=== PATIENT | male | born 1945 ===

== ENCOUNTER 2022-10-16 21:38 | Inpatient (IN) | payer OTHER ==
[~2022-10-16] VITALS: Ht 170.2 cm; Wt 91.8 kg
[2022-10-16 21:44] VITALS: PULSE 167; RESP 42; O2SAT 95
[2022-10-16] MEDS ORDERED: dilTIAZem 25 MG/5 ML VIAL IV ONE ×2 (21:47→22:37)
[2022-10-16 21:54] VITALS: PULSE 171; O2SAT 94
[2022-10-16] MEDS ORDERED: SODIUM CHLORIDE 0.9% 1,000 ML IV ONE (22:00)
[2022-10-16 22:28] LABS: Base Excess -3.5 mmol/L (-2.0-2.0)
[2022-10-16 22:34] LABS: Basophils # (auto) 0 10 ^3/uL (0-0.2); Basophils % (auto) 0.1 % (0.0-2.0); Eosinophils # (auto) 0 10 ^3/uL (0-0.8)
[2022-10-16 22:35] LABS: Hematocrit 35.9 % (41.0-53.0); Hemoglobin 11.5 g/dL (13.5-17.5); Lymphocytes # (auto) 0.6 10 ^3/uL (0.4-5.4); Lymphocytes % (auto) 5.5 % (10.0-50.0); Mean Corpuscular Hemoglobin 32.5 pg (28.0-32.0); Mean Corpuscular Hgb Conc. 32.1 g/dL (32.0-36.0); Mean Corpuscular Volume 101.2 fL (80.0-100.0); Monocytes % (auto) 8.8 % (0.0-12.0); Neutrophils # (auto) 9.8 10 ^3/uL (1.6-8.6); Neutrophils % (auto) 85.6 % (37.0-80.0); Red Blood Cells 3.55 10^6/uL (4.5-5.90); Red Cell Distribution Width 16.6 % (11.8-14.3); White Blood Cell 11.4 10^3/uL (4.4-10.8)
[2022-10-16 22:46] LABS: Alanine Aminotransferase 33 U/L (7-40); Albumin 2.7 g/dL (3.2-4.8); Alkaline Phosphatase 112 U/L (46-116); Anion Gap 11.7 (5-15); Aspartate Aminotransferase 78 U/L (13-40); Bilirubin, Total 0.6 mg/dL (0.2-1.0); Blood Urea Nitrogen 36 mg/dL (9-23); Calcium 7.7 mg/dL (8.5-10.1); Carbon Dioxide 17.3 mmol/L (20-30); Chloride 113 mmol/L (98-107); Glucose 291 mg/dL (74-106); Potassium 3.1 mmol/L (3.5-5.1); Sodium 142 mmol/L (136-145); Total Protein 6.2 g/dL (5.7-8.2)
[2022-10-16 22:55] LABS: INR 1.28 (0.9-1.15); Partial Thromboplastin Time 31.1 SEC (24.5-34.5); Prothrombin Time 13.2 sec (9.3-11.8)
[2022-10-16] MEDS ORDERED: METOPROLOL TARTRATE 1MG/1ML-5ML VIAL IV ONE ×3 (22:59→23:13)
[2022-10-16] MEDS ORDERED: ENOXAPARIN SOD 80 MG/0.8ML SYRINGE SC ONE (23:15)
[2022-10-16] MEDS: LACTATED RINGER'S 1,000 ML IV ONE (23:45)
[2022-10-16 23:58] VITALS: BP 113/60; PULSE 160; RESP 29; TEMP 97.4; O2SAT 94
[2022-10-17] VITALS (27 sets, daily range): BP systolic 84–116; BP diastolic 46–71; PULSE 71–115; RESP 21–40; TEMP 97–97.8; O2SAT 87–98
[2022-10-17] MEDS ORDERED: AZITHROMYCIN 500MG/ 250ML 250 ML IV ONE
[2022-10-17] MEDS ORDERED: cefTRIAXone 1GM/50ML D5W 50 ML IV ONE
[2022-10-17] MEDS ORDERED: dilTIAZem 25 MG/5 ML VIAL IV ONE ×2
[2022-10-17] MEDS ORDERED: ALBUTEROL SULF 2.5 MG/0.5ML(0.5%) NEB SOLN NEB ONE
[2022-10-17] MEDS ORDERED: DexAMETHasone SOD PHOS 10MG/1ML VIAL INJ IV ONE
[2022-10-17 00:27] LABS: Urine Bacteria NONE SEEN /hpf (None Seen); Urine Blood TRACE /uL (Negative); Urine Clarity CLOUDY (Clear); Urine Color Yellow (Yellow); Urine Protein, UAD 2+ (Negative); Urine Specific Gravity 1.016 (1.001-1.035); Urine Urobilinogen Normal (Negative); Urine WBC 89 /hpf (0 - 3); Urine WBC Clumps PRESENT /hpf (None Seen)
[2022-10-17] MEDS ORDERED: METOPROLOL TARTRATE 1MG/1ML-5ML VIAL IV ONE ×4 (00:37→00:39)
[2022-10-17] MEDS: METOPROLOL TARTRATE 1MG/1ML-5ML VIAL IV ONE ×2 (00:42→03:19)
[2022-10-17 00:43] LABS: Rapid Influenza A Negative (Negative); Rapid Influenza B Negative (Negative)
[2022-10-17 00:44] LABS: COVID19 ANTIGEN SOFIA FIA NEGATIVE (NEGATIVE)
[2022-10-17] MEDS: LACTATED RINGER'S 1,000 ML IV ONE (01:33)
[2022-10-17] MEDS ORDERED: HYDROcodone-ACET 5/325MG TAB PO PRN (06:00)
[2022-10-17] MEDS ORDERED: DOCUSATE SOD 100 MG CAP PO PRN (06:00)
[2022-10-17] MEDS ORDERED: DEXTROSE (50%) 50ML SYRG IV PRN (06:00)
[2022-10-17] MEDS ORDERED: ACETAMINOPHEN 325 MG TAB PO PRN (06:00)
[2022-10-17] MEDS ORDERED: ALBUMIN 25% 100 ML IV ONE (06:00)
[2022-10-17] MEDS ORDERED: ONDANSETRON HCL 4 MG/2 ML VIAL IV PRN (06:00)
[2022-10-17] MEDS: SODIUM CHLOR 0.9% PF (SALINE LOCK) 10ML VIAL/SYR IV SCH ×3 (06:30→22:00)
[2022-10-17 06:47] LABS: Basophils # (auto) 0 10 ^3/uL (0-0.2); Basophils % (auto) 0.1 % (0.0-2.0); Eosinophils # (auto) 0 10 ^3/uL (0-0.8); Hematocrit 34.7 % (41.0-53.0); Hemoglobin 11.3 g/dL (13.5-17.5); Lymphocytes # (auto) 1.1 10 ^3/uL (0.4-5.4); Lymphocytes % (auto) 10.4 % (10.0-50.0); Mean Corpuscular Hemoglobin 32.7 pg (28.0-32.0); Mean Corpuscular Hgb Conc. 32.5 g/dL (32.0-36.0); Mean Corpuscular Volume 100.6 fL (80.0-100.0); Monocytes # (auto) 0.4 10 ^3/uL (0-1.3); Monocytes % (auto) 3.4 % (0.0-12.0); Neutrophils # (auto) 9.2 10 ^3/uL (1.6-8.6); Neutrophils % (auto) 86.1 % (37.0-80.0); Nucleated Red Blood Cells % 0.2 %; Red Blood Cells 3.45 10^6/uL (4.5-5.90); Red Cell Distribution Width 16.3 % (11.8-14.3); White Blood Cell 10.7 10^3/uL (4.4-10.8)
[2022-10-17] MEDS ORDERED: NITROGLYCERIN 0.4 MG SL TAB SL PRN (07:00)
[2022-10-17] MEDS ORDERED: MORPHINE SULFATE INJ 2 MG/ml SYRG IV PRN (07:00)
[2022-10-17] MEDS: POTASSIUM CHL 20MEQ/100ML 100 ML IV SCH ×2 (07:22→10:58)
[2022-10-17] MEDS: ACCU-CHEK COMFORT CURVE STRIP VI SCH ×4 (07:25→22:00)
[2022-10-17] MEDS: InsuLIN REG 1unit/0.01ml Soln (100units/ml) SC SCH ×4 (07:30→22:00)
[2022-10-17] MEDS ORDERED: CALCIUM GLUC 1,000mg/50ml-NS 50 ML IV ONE (08:30)
[2022-10-17 08:58] LABS: Alanine Aminotransferase 33 U/L (7-40); Albumin 2.8 g/dL (3.2-4.8); Alkaline Phosphatase 110 U/L (46-116); Anion Gap 15.1 (5-15); Aspartate Aminotransferase 82 U/L (13-40); BUN/Creatinine Ratio 45.7 (10.0-20.0); Blood Urea Nitrogen 37 mg/dL (9-23); Calcium 7.6 mg/dL (8.5-10.1); Carbon Dioxide 13.9 mmol/L (20-30); Chloride 116 mmol/L (98-107); Glucose 290 mg/dL (74-106); Potassium 3.3 mmol/L (3.5-5.1); Sodium 145 mmol/L (136-145)
[2022-10-17 08:59] LABS: Bilirubin, Total 0.6 mg/dL (0.2-1.0); Total Protein 6.3 g/dL (5.7-8.2)
[2022-10-17] MEDS ORDERED: HEPARIN SODIUM (PORCINE) 5000 UNITS/ML 1ML VIAL SC SCH (10:00)
[2022-10-17] MEDS: CARVEDILOL 3.125 MG TAB PO SCH ×2 (10:38→22:00)
[2022-10-17] MEDS: ASPirin 81 mg TAB PO SCH (10:42)
[2022-10-17] MEDS: DexAMETHasone SOD PHOS 10MG/1ML VIAL INJ IV SCH (10:50)
[2022-10-17] MEDS: FUROSEMIDE 20 MG/2 ML VIAL IV SCH (10:51)
[2022-10-17] MEDS ORDERED: HEPARIN DRIP/D5W 100UNITS/ML 250 ML IV SCH ×2 (12:00→20:15)
[2022-10-17] MEDS ORDERED: DIGOXIN (250MCG/ML) 2 ML AMPULE IV ONE (12:00)
[2022-10-17] MEDS ORDERED: HEPARIN SODIUM (PORCINE) 5000 UNITS/ML 1ML VIAL IV ONE (12:00)
[2022-10-17 12:26] LABS: Magnesium 1.9 mg/dL (1.6-2.6)
[2022-10-17 12:39] LABS: INR 1.21 (0.9-1.15); Partial Thromboplastin Time 43.1 SEC (24.5-34.5); Prothrombin Time 12.5 sec (9.3-11.8)
[2022-10-17 12:40] LABS: Basophils # (auto) 0 10 ^3/uL (0-0.2); Basophils % (auto) 0.1 % (0.0-2.0); Eosinophils # (auto) 0 10 ^3/uL (0-0.8); Hematocrit 34.6 % (41.0-53.0); Hemoglobin 11.1 g/dL (13.5-17.5); Lymphocytes # (auto) 0.9 10 ^3/uL (0.4-5.4); Mean Corpuscular Hemoglobin 32.3 pg (28.0-32.0); Mean Corpuscular Hgb Conc. 32.1 g/dL (32.0-36.0); Mean Corpuscular Volume 100.5 fL (80.0-100.0); Monocytes # (auto) 0.4 10 ^3/uL (0-1.3); Monocytes % (auto) 4.3 % (0.0-12.0); Neutrophils # (auto) 8.5 10 ^3/uL (1.6-8.6); Neutrophils % (auto) 86.6 % (37.0-80.0); Red Blood Cells 3.44 10^6/uL (4.5-5.90); Red Cell Distribution Width 16.8 % (11.8-14.3); White Blood Cell 9.8 10^3/uL (4.4-10.8)
[2022-10-17] MEDS ORDERED: PANT40TA2 PO (15:16)
[2022-10-17] MEDS ORDERED: PANT1INJ3 IV (15:16)
[2022-10-17] MEDS ORDERED: SUCR1TAB22 PO (15:16)
[2022-10-17] MEDS ORDERED: FINA5TAB4 PO (15:18)
[2022-10-17] MEDS ORDERED: ONDA-155 PO (15:18)
[2022-10-17] MEDS ORDERED: TERA5CAP42 PO (15:18)
[2022-10-17] MEDS ORDERED: FAMO-12 PO (15:18)
[2022-10-17 15:33] LABS: Lactic Acid w/Reflex 2.9 mmol/L (0.4-2.0)
[2022-10-17 19:27] LABS: INR 1.25 (0.9-1.15); Partial Thromboplastin Time 44.9 SEC (24.5-34.5); Prothrombin Time 12.9 sec (9.3-11.8)
[2022-10-17] MEDS: ATORVASTATIN 20 MG TAB PO SCH (22:00)
[2022-10-18] VITALS (36 sets, daily range): BP systolic 90–115; BP diastolic 43–69; PULSE 54–96; RESP 12–46; TEMP 97.2–97.8; O2SAT 87–99
[2022-10-18] MEDS: cefTRIAXone 1GM/50ML D5W 50 ML IV SCH
[2022-10-18] MEDS: AZITHROMYCIN 500MG/ 250ML 250 ML IV SCH (02:50)
[2022-10-18 04:49] LABS: Basophils # (auto) 0 10 ^3/uL (0-0.2); Basophils % (auto) 0.1 % (0.0-2.0); Eosinophils # (auto) 0 10 ^3/uL (0-0.8); Hemoglobin 11.1 g/dL (13.5-17.5); Lymphocytes # (auto) 0.7 10 ^3/uL (0.4-5.4); Lymphocytes % (auto) 6.4 % (10.0-50.0); Monocytes # (auto) 0.6 10 ^3/uL (0-1.3); Neutrophils # (auto) 9.1 10 ^3/uL (1.6-8.6); Nucleated Red Blood Cells % 0.1 %; Red Blood Cells 3.39 10^6/uL (4.5-5.90); White Blood Cell 10.4 10^3/uL (4.4-10.8)
[2022-10-18 04:50] LABS: Mean Corpuscular Hemoglobin 32.6 pg (28.0-32.0); Mean Corpuscular Hgb Conc. 31.6 g/dL (32.0-36.0); Mean Corpuscular Volume 103.2 fL (80.0-100.0); Monocytes % (auto) 5.5 % (0.0-12.0); Red Cell Distribution Width 17.1 % (11.8-14.3)
[2022-10-18 05:08] LABS: Alanine Aminotransferase 45 U/L (7-40); Alkaline Phosphatase 149 U/L (46-116)
[2022-10-18 05:09] LABS: Albumin 2.8 g/dL (3.2-4.8); Anion Gap 8.3 (5-15); Aspartate Aminotransferase 99 U/L (13-40); BUN/Creatinine Ratio 48.5 (10.0-20.0); Bilirubin, Total 0.5 mg/dL (0.2-1.0); Blood Urea Nitrogen 33 mg/dL (9-23); Calcium 7.8 mg/dL (8.7-10.4); Carbon Dioxide 22.7 mmol/L (20-30); Chloride 116 mmol/L (98-107); Potassium 3.4 mmol/L (3.5-5.1); Sodium 147 mmol/L (136-145)
[2022-10-18 05:15] LABS: Glucose 185 mg/dL (74-106)
[2022-10-18] MEDS: SODIUM CHLOR 0.9% PF (SALINE LOCK) 10ML VIAL/SYR IV SCH ×3 (06:00→22:00)
[2022-10-18] MEDS: ACCU-CHEK COMFORT CURVE STRIP VI SCH ×4 (07:00→22:00)
[2022-10-18] MEDS: InsuLIN REG 1unit/0.01ml Soln (100units/ml) SC SCH ×4 (07:00→23:13)
[2022-10-18] MEDS ORDERED: MAGNESIUM SULFATE 1GM/100ML 100 ML IV ONE (07:45)
[2022-10-18] MEDS: POTASSIUM CHL 20MEQ/100ML 100 ML IV SCH ×2 (09:51→11:47)
[2022-10-18] MEDS: POTASSIUM CHL 20 Meq TABLET PO SCH (10:00)
[2022-10-18] MEDS: CARVEDILOL 3.125 MG TAB PO SCH ×2 (10:00→22:00)
[2022-10-18] MEDS: ASPirin 81 mg TAB PO SCH (10:00)
[2022-10-18] MEDS: DexAMETHasone SOD PHOS 10MG/1ML VIAL INJ IV SCH (10:13)
[2022-10-18] MEDS: FUROSEMIDE 20 MG/2 ML VIAL IV SCH (10:13)
[2022-10-18] MEDS: MAGIC MOUTHWASH 55 ML SUSP MT SCH ×3 (12:00→21:44)
[2022-10-18 13:49] LABS: INR 1.16 (0.9-1.15); Partial Thromboplastin Time 47.6 SEC (24.5-34.5); Prothrombin Time 12.1 sec (9.3-11.8)
[2022-10-18] MEDS: HEPARIN DRIP/D5W 100UNITS/ML 250 ML IV SCH (14:53)
[2022-10-18] MEDS: PROMETHAZINE HCL 6.25 MG/5 ML ORAL SYRUP PO PRN (17:42)
[2022-10-18] MEDS ORDERED: THROAT LOZENGES(CEPASTAT) MT PRN (21:00)
[2022-10-18 21:36] LABS: INR 1.18 (0.9-1.15); Partial Thromboplastin Time 65.1 SEC (24.5-34.5); Prothrombin Time 12.3 sec (9.3-11.8)
[2022-10-18] MEDS: IPRATROPIUM BROM 0.5 MG/2.5ML INH SOL NEB SCH (22:19)
[2022-10-18] MEDS: ALBUTEROL SULF 2.5 MG/0.5ML(0.5%) NEB SOLN NEB SCH (22:20)
[2022-10-18] MEDS: ATORVASTATIN 20 MG TAB PO SCH (22:48)
[2022-10-19] VITALS (33 sets, daily range): BP systolic 95–135; BP diastolic 48–76; PULSE 59–118; RESP 13–38; TEMP 97.3–98.6; O2SAT 88–99
[2022-10-19] MEDS: cefTRIAXone 1GM/50ML D5W 50 ML IV SCH ×2 (00:12→23:41)
[2022-10-19] MEDS: PROMETHAZINE HCL 6.25 MG/5 ML ORAL SYRUP PO PRN (00:14)
[2022-10-19] MEDS: AZITHROMYCIN 500MG/ 250ML 250 ML IV SCH (01:17)
[2022-10-19 04:50] LABS: INR 1.19 (0.9-1.15); Prothrombin Time 12.4 sec (9.3-11.8)
[2022-10-19 04:58] LABS: Partial Thromboplastin Time 73.2 SEC (24.5-34.5)
[2022-10-19] MEDS: ALBUTEROL SULF 2.5 MG/0.5ML(0.5%) NEB SOLN NEB SCH ×3 (05:58→18:10)
[2022-10-19] MEDS: IPRATROPIUM BROM 0.5 MG/2.5ML INH SOL NEB SCH ×3 (05:58→18:09)
[2022-10-19 06:00] LABS: Chloride 116 mmol/L (98-107); Potassium 3.3 mmol/L (3.5-5.1); Sodium 146 mmol/L (136-145)
[2022-10-19] MEDS: SODIUM CHLOR 0.9% PF (SALINE LOCK) 10ML VIAL/SYR IV SCH ×3 (06:00→22:36)
[2022-10-19] MEDS: MAGIC MOUTHWASH 55 ML SUSP MT SCH ×4 (06:00→22:36)
[2022-10-19 06:01] LABS: Anion Gap 9.6 (5-15); Carbon Dioxide 20.4 mmol/L (20-30)
[2022-10-19 06:02] LABS: Calcium 7.8 mg/dL (8.7-10.4)
[2022-10-19 06:06] LABS: BUN/Creatinine Ratio 51.6 (10.0-20.0); Blood Urea Nitrogen 32 mg/dL (9-23); Glucose 151 mg/dL (74-106)
[2022-10-19 06:08] LABS: Basophils # (auto) 0 10 ^3/uL (0-0.2); Basophils % (auto) 0.1 % (0.0-2.0); Eosinophils # (auto) 0 10 ^3/uL (0-0.8); Monocytes # (auto) 0.6 10 ^3/uL (0-1.3); Monocytes % (auto) 5.2 % (0.0-12.0); Red Cell Distribution Width 16.8 % (11.8-14.3)
[2022-10-19 06:10] LABS: Hematocrit 34.3 % (41.0-53.0); Lymphocytes # (auto) 0.7 10 ^3/uL (0.4-5.4); Lymphocytes % (auto) 6.7 % (10.0-50.0); Mean Corpuscular Hemoglobin 32.4 pg (28.0-32.0); Mean Corpuscular Volume 101.3 fL (80.0-100.0); Neutrophils # (auto) 9.5 10 ^3/uL (1.6-8.6); Nucleated Red Blood Cells % 0.1 %; Red Blood Cells 3.38 10^6/uL (4.5-5.90); White Blood Cell 10.9 10^3/uL (4.4-10.8)
[2022-10-19] MEDS: InsuLIN REG 1unit/0.01ml Soln (100units/ml) SC SCH ×4 (07:00→22:41)
[2022-10-19] MEDS: ACCU-CHEK COMFORT CURVE STRIP VI SCH ×4 (07:00→22:37)
[2022-10-19] MEDS: HEPARIN DRIP/D5W 100UNITS/ML 250 ML IV SCH (08:19)
[2022-10-19] MEDS: DexAMETHasone SOD PHOS 10MG/1ML VIAL INJ IV SCH (09:59)
[2022-10-19] MEDS: ASPirin 81 mg TAB PO SCH (09:59)
[2022-10-19] MEDS: FUROSEMIDE 20 MG/2 ML VIAL IV SCH (09:59)
[2022-10-19] MEDS: POTASSIUM CHL 20 Meq TABLET PO SCH (09:59)
[2022-10-19] MEDS: CARVEDILOL 3.125 MG TAB PO SCH ×2 (10:08→22:00)
[2022-10-19 10:19] LABS: INR 1.17 (0.9-1.15); Partial Thromboplastin Time 57.2 SEC (24.5-34.5); Prothrombin Time 12.2 sec (9.3-11.8)
[2022-10-19] MEDS: ATORVASTATIN 20 MG TAB PO SCH (22:36)
[2022-10-20] VITALS (33 sets, daily range): BP systolic 92–129; BP diastolic 43–70; PULSE 30–103; RESP 13–32; TEMP 97.4–97.9; O2SAT 83–97
[2022-10-20] MEDS: IPRATROPIUM BROM 0.5 MG/2.5ML INH SOL NEB SCH ×4 (00:07→18:33)
[2022-10-20] MEDS: ALBUTEROL SULF 2.5 MG/0.5ML(0.5%) NEB SOLN NEB SCH ×4 (00:07→18:33)
[2022-10-20] MEDS: AZITHROMYCIN 500MG/ 250ML 250 ML IV SCH (01:14)
[2022-10-20] MEDS: HEPARIN DRIP/D5W 100UNITS/ML 250 ML IV SCH ×2 (02:28→08:39)
[2022-10-20 05:59] LABS: Basophils # (auto) 0 10 ^3/uL (0-0.2); Eosinophils # (auto) 0 10 ^3/uL (0-0.8); Mean Corpuscular Hemoglobin 33.3 pg (28.0-32.0); Monocytes # (auto) 0.5 10 ^3/uL (0-1.3); Neutrophils % (auto) 89.4 % (37.0-80.0); Red Blood Cells 3.31 10^6/uL (4.5-5.90)
[2022-10-20] MEDS: MAGIC MOUTHWASH 55 ML SUSP MT SCH ×4 (06:00→20:45)
[2022-10-20 06:02] LABS: Hematocrit 33.5 % (41.0-53.0); Lymphocytes # (auto) 0.5 10 ^3/uL (0.4-5.4); Lymphocytes % (auto) 5.6 % (10.0-50.0); Mean Corpuscular Hgb Conc. 32.9 g/dL (32.0-36.0); Mean Corpuscular Volume 101.3 fL (80.0-100.0); Neutrophils # (auto) 8.5 10 ^3/uL (1.6-8.6); Nucleated Red Blood Cells % 0.1 %; Red Cell Distribution Width 16.5 % (11.8-14.3); White Blood Cell 9.5 10^3/uL (4.4-10.8)
[2022-10-20 06:30] LABS: INR 1.26 (0.9-1.15)
[2022-10-20] MEDS: ACCU-CHEK COMFORT CURVE STRIP VI SCH ×3 (06:46→18:22)
[2022-10-20] MEDS: SODIUM CHLOR 0.9% PF (SALINE LOCK) 10ML VIAL/SYR IV SCH ×2 (06:46→14:00)
[2022-10-20] MEDS: InsuLIN REG 1unit/0.01ml Soln (100units/ml) SC SCH ×3 (06:47→18:24)
[2022-10-20] MEDS ORDERED: TPN PER PHARMACY 0 ML IV SCH (08:15)
[2022-10-20 08:30] LABS: Alanine Aminotransferase 87 U/L (7-40); Albumin 2.8 g/dL (3.2-4.8); Alkaline Phosphatase 171 U/L (46-116); Aspartate Aminotransferase 98 U/L (13-40); BUN/Creatinine Ratio 45.6 (10.0-20.0); Blood Urea Nitrogen 26 mg/dL (9-23); Calcium 7.6 mg/dL (8.5-10.1); Chloride 114 mmol/L (98-107); Glucose 140 mg/dL (74-106); Magnesium 2.1 mg/dL (1.6-2.6); Potassium 3.8 mmol/L (3.5-5.1); Sodium 146 mmol/L (136-145); Triglycerides 78 mg/dL (< 150)
[2022-10-20 08:31] LABS: Bilirubin, Total 0.4 mg/dL (0.2-1.0); Phosphorus 4.2 mg/dL (2.4-5.1)
[2022-10-20 10:59] LABS: Base Excess -0.1 mmol/L (-2.0-2.0)
[2022-10-20] MEDS ORDERED: DEXTROSE (50%) 50ML SYRG IV SCH ×2 (11:00→20:00)
[2022-10-20] MEDS: CARVEDILOL 3.125 MG TAB PO SCH ×2 (11:04→21:26)
[2022-10-20] MEDS: DexAMETHasone SOD PHOS 10MG/1ML VIAL INJ IV SCH (11:04)
[2022-10-20] MEDS: FUROSEMIDE 20 MG/2 ML VIAL IV SCH (11:04)
[2022-10-20] MEDS: ASPirin 81 mg TAB PO SCH (11:04)
[2022-10-20] MEDS: POTASSIUM CHL 20 Meq TABLET PO SCH (11:05)
[2022-10-20] MEDS: FLUCONAZOLE 200MG/100ML 100 ML IV SCH ×2 (11:05→12:15)
[2022-10-20 13:13] LABS: COVID19 ANTIGEN SOFIA FIA NEGATIVE (NEGATIVE)
[2022-10-20] MEDS ORDERED: LORazepam 2MG/ML-1ML VIAL IV PRN (14:00)
[2022-10-20 15:23] LABS: INR 1.23 (0.9-1.15); Prothrombin Time 12.7 sec (9.3-11.8)
[2022-10-20 20:50] LABS: INR 1.26 (0.9-1.15); Partial Thromboplastin Time 56.7 SEC (24.5-34.5)
[2022-10-20] MEDS: TPN PER PHARMACY IV NR ×9 (21:17)
[2022-10-20] MEDS: ATORVASTATIN 20 MG TAB PO SCH (21:26)
[2022-10-21] VITALS (41 sets, daily range): BP systolic 85–127; BP diastolic 42–69; PULSE 57–94; RESP 15–68; TEMP 97.2–98; O2SAT 86–97
[2022-10-21] MEDS ORDERED: InsuLIN REG 1unit/0.01ml Soln (100units/ml) SC SCH
[2022-10-21] MEDS ORDERED: ACCU-CHEK COMFORT CURVE STRIP VI SCH
[2022-10-21] MEDS: IPRATROPIUM BROM 0.5 MG/2.5ML INH SOL NEB SCH ×4 (00:12→18:11)
[2022-10-21] MEDS: ALBUTEROL SULF 2.5 MG/0.5ML(0.5%) NEB SOLN NEB SCH ×4 (00:12→18:11)
[2022-10-21] MEDS: cefTRIAXone 1GM/50ML D5W 50 ML IV SCH (00:27)
[2022-10-21] MEDS: SODIUM CHLOR 0.9% PF (SALINE LOCK) 10ML VIAL/SYR IV SCH ×4 (00:27→21:43)
[2022-10-21] MEDS: AZITHROMYCIN 500MG/ 250ML 250 ML IV SCH (00:27)
[2022-10-21] MEDS: ACCU-CHEK COMFORT CURVE STRIP VI SCH ×4 (00:33→18:40)
[2022-10-21] MEDS: InsuLIN REG 1unit/0.01ml Soln (100units/ml) SC SCH ×4 (00:37→18:46)
[2022-10-21] MEDS: HEPARIN DRIP/D5W 100UNITS/ML 250 ML IV SCH (00:45)
[2022-10-21 02:54] LABS: INR 1.26 (0.9-1.15); Partial Thromboplastin Time 60.1 SEC (24.5-34.5)
[2022-10-21 03:38] LABS: Basophils # (auto) 0 10 ^3/uL (0-0.2); Eosinophils # (auto) 0 10 ^3/uL (0-0.8); Hematocrit 30.1 % (41.0-53.0); Lymphocytes # (auto) 0.5 10 ^3/uL (0.4-5.4); Mean Corpuscular Hemoglobin 33.7 pg (28.0-32.0); Mean Corpuscular Hgb Conc. 33.2 g/dL (32.0-36.0); Mean Corpuscular Volume 101.5 fL (80.0-100.0); Monocytes # (auto) 0.2 10 ^3/uL (0-1.3); Neutrophils # (auto) 6.7 10 ^3/uL (1.6-8.6); Red Blood Cells 2.97 10^6/uL (4.5-5.90); Red Cell Distribution Width 16.2 % (11.8-14.3); White Blood Cell 7.4 10^3/uL (4.4-10.8)
[2022-10-21 03:45] LABS: Alanine Aminotransferase 81 U/L (7-40); Albumin 2.6 g/dL (3.2-4.8); Alkaline Phosphatase 168 U/L (46-116); Anion Gap 3.4 (5-15); Aspartate Aminotransferase 98 U/L (13-40); BUN/Creatinine Ratio 34.5 (10.0-20.0); Blood Urea Nitrogen 20 mg/dL (9-23); Calcium 7.5 mg/dL (8.7-10.4); Carbon Dioxide 25.6 mmol/L (20-30); Chloride 110 mmol/L (98-107); Glucose 235 mg/dL (74-106); Potassium 4.2 mmol/L (3.5-5.1); Sodium 139 mmol/L (136-145)
[2022-10-21 03:46] LABS: Bilirubin, Total 0.3 mg/dL (0.2-1.0); Total Protein 5.6 g/dL (5.7-8.2)
[2022-10-21] MEDS: MAGIC MOUTHWASH 55 ML SUSP MT SCH ×4 (05:37→21:43)
[2022-10-21] MEDS: PROMETHAZINE HCL 6.25 MG/5 ML ORAL SYRUP PO PRN (08:02)
[2022-10-21] MEDS: FUROSEMIDE 20 MG/2 ML VIAL IV SCH (10:54)
[2022-10-21] MEDS: POTASSIUM CHL 20 Meq TABLET PO SCH (10:54)
[2022-10-21] MEDS: ASPirin 81 mg TAB PO SCH (10:54)
[2022-10-21] MEDS: DexAMETHasone SOD PHOS 10MG/1ML VIAL INJ IV SCH (10:54)
[2022-10-21] MEDS: CARVEDILOL 3.125 MG TAB PO SCH ×2 (10:55→21:25)
[2022-10-21] MEDS: FLUCONAZOLE 200MG/100ML 100 ML IV SCH ×2 (10:55→12:14)
[2022-10-21] MEDS: TPN PER PHARMACY IV NR ×9 (19:55)
[2022-10-21] MEDS ORDERED: TPN PER PHARMACY IV NR ×10 (20:00)
[2022-10-21] MEDS: ATORVASTATIN 20 MG TAB PO SCH (21:25)
[2022-10-22] VITALS (65 sets, daily range): BP systolic 69–146; BP diastolic 41–82; PULSE 39–106; RESP 14–35; TEMP 96.7–97.8; O2SAT 81–100
[2022-10-22] MEDS: IPRATROPIUM BROM 0.5 MG/2.5ML INH SOL NEB SCH ×4 (00:05→18:23)
[2022-10-22] MEDS: ALBUTEROL SULF 2.5 MG/0.5ML(0.5%) NEB SOLN NEB SCH ×4 (00:05→18:24)
[2022-10-22] MEDS: AZITHROMYCIN 500MG/ 250ML 250 ML IV SCH (00:20)
[2022-10-22] MEDS: cefTRIAXone 1GM/50ML D5W 50 ML IV SCH (00:20)
[2022-10-22] MEDS: HEPARIN DRIP/D5W 100UNITS/ML 250 ML IV SCH ×2 (00:37→16:58)
[2022-10-22] MEDS: ACCU-CHEK COMFORT CURVE STRIP VI SCH ×4 (00:39→19:56)
[2022-10-22] MEDS: InsuLIN REG 1unit/0.01ml Soln (100units/ml) SC SCH ×4 (00:46→19:58)
[2022-10-22] MEDS: SODIUM CHLOR 0.9% PF (SALINE LOCK) 10ML VIAL/SYR IV SCH ×3 (05:46→22:34)
[2022-10-22] MEDS: MAGIC MOUTHWASH 55 ML SUSP MT SCH ×4 (05:46→22:00)
[2022-10-22 06:20] LABS: Alanine Aminotransferase 73 U/L (7-40); Albumin 2.6 g/dL (3.2-4.8); Alkaline Phosphatase 160 U/L (46-116); Anion Gap 5 (5-15); Aspartate Aminotransferase 65 U/L (13-40); BUN/Creatinine Ratio 43.2 (10.0-20.0); Blood Urea Nitrogen 19 mg/dL (9-23); Calcium 7.4 mg/dL (8.5-10.1); Carbon Dioxide 27 mmol/L (20-30); Chloride 103 mmol/L (98-107); Glucose 232 mg/dL (74-106); Magnesium 1.8 mg/dL (1.6-2.6); Phosphorus 2.4 mg/dL (2.4-5.1); Sodium 135 mmol/L (136-145)
[2022-10-22 06:21] LABS: Bilirubin, Total 0.3 mg/dL (0.2-1.0); Total Protein 5.4 g/dL (5.7-8.2)
[2022-10-22] MEDS ORDERED: ETOMIDATE (2MG/ML) 20ML VIAL IV ONE (08:00)
[2022-10-22] MEDS ORDERED: ROCURONIUM 10MG/ML 10ML VIAL IV ONE (08:00)
[2022-10-22 08:04] LABS: INR 1.28 (0.9-1.15); Prothrombin Time 13.2 sec (9.3-11.8)
[2022-10-22 08:06] LABS: Partial Thromboplastin Time > 139.0 SEC (24.5-34.5)
[2022-10-22] MEDS ORDERED: HEPARIN DRIP/D5W 100UNITS/ML 250 ML IV SCH (09:00)
[2022-10-22] MEDS: POTASSIUM CHL 20 Meq TABLET PO SCH (10:00)
[2022-10-22] MEDS: CARVEDILOL 3.125 MG TAB PO SCH ×2 (10:00→22:00)
[2022-10-22] MEDS: ASPirin 81 mg TAB PO SCH (10:00)
[2022-10-22] MEDS ORDERED: SODIUM PHOSPHATES 20 MEQ in SODIUM CHL 0.9% 100 ML IV ONE (10:45)
[2022-10-22] MEDS: fentaNYL Drip 2500mCg/250mlNS 250 ML IV SCH (13:45)
[2022-10-22] MEDS: PROPOFOL 100 ML IV SCH ×2 (14:00→22:49)
[2022-10-22] MEDS: NOREPINEPHRINE 8 MG/250ML KIT 250 ML IV SCH (15:05)
[2022-10-22 15:37] LABS: Base Excess -1.8 mmol/L (-2.0-2.0)
[2022-10-22 15:52] LABS: Basophils # (auto) 0 10 ^3/uL (0-0.2); Basophils % (auto) 0.2 % (0.0-2.0); Eosinophils # (auto) 0 10 ^3/uL (0-0.8); Eosinophils % (auto) 0.2 % (0.0-7.0); Hematocrit 34.3 % (41.0-53.0); Hemoglobin 11.2 g/dL (13.5-17.5); Lymphocytes # (auto) 1.1 10 ^3/uL (0.4-5.4); Lymphocytes % (auto) 7.3 % (10.0-50.0); Mean Corpuscular Hemoglobin 32.7 pg (28.0-32.0); Mean Corpuscular Hgb Conc. 32.7 g/dL (32.0-36.0); Mean Corpuscular Volume 99.9 fL (80.0-100.0); Monocytes # (auto) 0.5 10 ^3/uL (0-1.3); Monocytes % (auto) 3.2 % (0.0-12.0); Neutrophils # (auto) 13.1 10 ^3/uL (1.6-8.6); Neutrophils % (auto) 89.1 % (37.0-80.0); Red Blood Cells 3.43 10^6/uL (4.5-5.90); Red Cell Distribution Width 15.6 % (11.8-14.3); White Blood Cell 14.7 10^3/uL (4.4-10.8)
[2022-10-22] MEDS: FUROSEMIDE 20 MG/2 ML VIAL IV SCH (15:55)
[2022-10-22] MEDS: DexAMETHasone SOD PHOS 10MG/1ML VIAL INJ IV SCH (15:55)
[2022-10-22] MEDS: FLUCONAZOLE 200MG/100ML 100 ML IV SCH ×2 (15:56→17:03)
[2022-10-22 16:12] LABS: INR 1.21 (0.9-1.15); Prothrombin Time 12.5 sec (9.3-11.8)
[2022-10-22 17:09] LABS: Hepatitis A Total Antibody Positive (Negative)
[2022-10-22 17:10] LABS: Hepatitis B Core Total AB Negative (Negative); Hepatitis B Surface Antibody Negative (Negative); Hepatitis B Surface Antigen Negative (Negative); Hepatitis C Antibody Negative (Negative)
[2022-10-22] MEDS: MAGNESIUM SULFATE 1GM/100ML 100 ML IV SCH ×2 (20:00→22:35)
[2022-10-22] MEDS: TPN PER PHARMACY IV NR ×12 (21:09)
[2022-10-22] MEDS: ATORVASTATIN 20 MG TAB PO SCH (22:33)
[2022-10-22 23:42] LABS: INR 1.14 (0.9-1.15); Partial Thromboplastin Time 65.7 SEC (24.5-34.5); Prothrombin Time 11.9 sec (9.3-11.8)
[2022-10-23] VITALS (104 sets, daily range): BP systolic 85–157; BP diastolic 43–87; PULSE 44–162; RESP 16–29; TEMP 96.1–99.3; O2SAT 94–100
[2022-10-23] MEDS: cefTRIAXone 1GM/50ML D5W 50 ML IV SCH (00:06)
[2022-10-23] MEDS: IPRATROPIUM BROM 0.5 MG/2.5ML INH SOL NEB SCH ×4 (00:07→18:26)
[2022-10-23] MEDS: ALBUTEROL SULF 2.5 MG/0.5ML(0.5%) NEB SOLN NEB SCH ×4 (00:07→18:26)
[2022-10-23] MEDS: ACCU-CHEK COMFORT CURVE STRIP VI SCH ×4 (00:13→18:30)
[2022-10-23] MEDS: InsuLIN REG 1unit/0.01ml Soln (100units/ml) SC SCH ×4 (00:18→18:35)
[2022-10-23] MEDS: HEPARIN DRIP/D5W 100UNITS/ML 250 ML IV SCH (01:25)
[2022-10-23] MEDS: AZITHROMYCIN 500MG/ 250ML 250 ML IV SCH (01:27)
[2022-10-23] MEDS: MAGIC MOUTHWASH 55 ML SUSP MT SCH ×4 (05:33→22:00)
[2022-10-23 05:43] LABS: Alanine Aminotransferase 82 U/L (7-40); Albumin 2.8 g/dL (3.2-4.8); Alkaline Phosphatase 186 U/L (46-116); Anion Gap 5 (5-15); Aspartate Aminotransferase 58 U/L (13-40); BUN/Creatinine Ratio 30.8 (10.0-20.0); Bilirubin, Total 0.3 mg/dL (0.2-1.0); Blood Urea Nitrogen 16 mg/dL (9-23); Carbon Dioxide 27 mmol/L (20-30); Chloride 99 mmol/L (98-107); Glucose 298 mg/dL (74-106); Magnesium 2.1 mg/dL (1.6-2.6); Potassium 4.2 mmol/L (3.5-5.1); Sodium 131 mmol/L (136-145)
[2022-10-23 05:44] LABS: Calcium 7.2 mg/dL (8.7-10.4); Total Protein 5.9 g/dL (5.7-8.2)
[2022-10-23] MEDS: SODIUM CHLOR 0.9% PF (SALINE LOCK) 10ML VIAL/SYR IV SCH ×3 (05:53→22:22)
[2022-10-23 06:00] LABS: Basophils # (auto) 0 10 ^3/uL (0-0.2); Basophils % (auto) 0.1 % (0.0-2.0); Eosinophils # (auto) 0 10 ^3/uL (0-0.8); Hemoglobin 11.1 g/dL (13.5-17.5); Lymphocytes # (auto) 1.4 10 ^3/uL (0.4-5.4); Lymphocytes % (auto) 7.6 % (10.0-50.0); Mean Corpuscular Hemoglobin 33.5 pg (28.0-32.0); Mean Corpuscular Hgb Conc. 33.5 g/dL (32.0-36.0); Mean Corpuscular Volume 100.2 fL (80.0-100.0); Monocytes # (auto) 0.6 10 ^3/uL (0-1.3); Monocytes % (auto) 3.6 % (0.0-12.0); Neutrophils # (auto) 16.1 10 ^3/uL (1.6-8.6); Neutrophils % (auto) 88.7 % (37.0-80.0); Nucleated Red Blood Cells % 0.1 %; Red Cell Distribution Width 15.7 % (11.8-14.3); White Blood Cell 18.1 10^3/uL (4.4-10.8)
[2022-10-23 07:59] LABS: INR 1.15 (0.9-1.15)
[2022-10-23] MEDS: fentaNYL Drip 2500mCg/250mlNS 250 ML IV SCH ×2 (08:00→16:31)
[2022-10-23 08:05] LABS: Partial Thromboplastin Time 71.4 SEC (24.5-34.5)
[2022-10-23] MEDS: ASPirin 81 mg TAB PO SCH (09:45)
[2022-10-23] MEDS: FUROSEMIDE 20 MG/2 ML VIAL IV SCH (09:46)
[2022-10-23] MEDS: DexAMETHasone SOD PHOS 10MG/1ML VIAL INJ IV SCH (09:46)
[2022-10-23] MEDS: POTASSIUM EFFERVESENT TAB 25 MEQ GT SCH (09:46)
[2022-10-23] MEDS: LINEZOLID 600MG/300ML 300 ML IV SCH ×2 (09:47→22:23)
[2022-10-23] MEDS: CARVEDILOL 3.125 MG TAB PO SCH ×2 (09:48→22:00)
[2022-10-23] MEDS: NOREPINEPHRINE 8 MG/250ML KIT 250 ML IV SCH (10:04)
[2022-10-23] MEDS: FLUCONAZOLE 200MG/100ML 100 ML IV SCH ×2 (12:32→13:34)
[2022-10-23] MEDS: PIPERACILLIN-TAZOB 3.375GM 100 ML IV SCH ×2 (14:36→22:23)
[2022-10-23] MEDS: PROPOFOL 100 ML IV SCH (16:27)
[2022-10-23] MEDS ORDERED: TPN PER PHARMACY IV NR ×11 (20:00)
[2022-10-23] MEDS: TPN PER PHARMACY IV NR ×12 (20:27)
[2022-10-23 21:41] LABS: INR 1.19 (0.9-1.15); Partial Thromboplastin Time 68.7 SEC (24.5-34.5); Prothrombin Time 12.4 sec (9.3-11.8)
[2022-10-23] MEDS: ATORVASTATIN 20 MG TAB PO SCH (22:23)
[2022-10-24] VITALS (106 sets, daily range): BP systolic 72–159; BP diastolic 43–125; PULSE 47–151; RESP 16–26; TEMP 97–100.2; O2SAT 85–98
[2022-10-24] MEDS: ACCU-CHEK COMFORT CURVE STRIP VI SCH ×5 (00:23→23:57)
[2022-10-24] MEDS: InsuLIN REG 1unit/0.01ml Soln (100units/ml) SC SCH ×4 (00:25→17:59)
[2022-10-24] MEDS: IPRATROPIUM BROM 0.5 MG/2.5ML INH SOL NEB SCH ×4 (00:43→18:28)
[2022-10-24] MEDS: ALBUTEROL SULF 2.5 MG/0.5ML(0.5%) NEB SOLN NEB SCH ×4 (00:43→18:28)
[2022-10-24] MEDS: PROPOFOL 100 ML IV SCH ×4 (02:01→20:57)
[2022-10-24] MEDS: HEPARIN DRIP/D5W 100UNITS/ML 250 ML IV SCH (04:16)
[2022-10-24 05:02] LABS: Alanine Aminotransferase 67 U/L (7-40); Albumin 2.9 g/dL (3.2-4.8); Alkaline Phosphatase 157 U/L (46-116); Anion Gap 5 (5-15); Aspartate Aminotransferase 41 U/L (13-40); BUN/Creatinine Ratio 22.6 (10.0-20.0); Bilirubin, Total 0.3 mg/dL (0.2-1.0); Blood Urea Nitrogen 14 mg/dL (9-23); Calcium 7.7 mg/dL (8.7-10.4); Carbon Dioxide 30 mmol/L (20-30); Chloride 100 mmol/L (98-107); Glucose 221 mg/dL (74-106); Potassium 3.9 mmol/L (3.5-5.1); Sodium 135 mmol/L (136-145)
[2022-10-24 05:56] LABS: INR 1.14 (0.9-1.15); Partial Thromboplastin Time 68.9 SEC (24.5-34.5); Prothrombin Time 11.9 sec (9.3-11.8)
[2022-10-24] MEDS: MAGIC MOUTHWASH 55 ML SUSP MT SCH ×4 (06:00→21:42)
[2022-10-24] MEDS: PIPERACILLIN-TAZOB 3.375GM 100 ML IV SCH ×3 (06:10→21:47)
[2022-10-24] MEDS: SODIUM CHLOR 0.9% PF (SALINE LOCK) 10ML VIAL/SYR IV SCH ×3 (06:20→21:44)
[2022-10-24 07:12] LABS: Base Excess 4.7 mmol/L (-2.0-2.0)
[2022-10-24] MEDS: NOREPINEPHRINE 8 MG/250ML KIT 250 ML IV SCH (09:16)
[2022-10-24] MEDS: DexAMETHasone SOD PHOS 10MG/1ML VIAL INJ IV SCH (09:30)
[2022-10-24] MEDS: FUROSEMIDE 20 MG/2 ML VIAL IV SCH (09:31)
[2022-10-24] MEDS: LINEZOLID 600MG/300ML 300 ML IV SCH ×2 (09:32→21:47)
[2022-10-24] MEDS: POTASSIUM EFFERVESENT TAB 25 MEQ GT SCH (09:32)
[2022-10-24] MEDS: ASPirin 81 mg TAB PO SCH (09:33)
[2022-10-24] MEDS: CARVEDILOL 3.125 MG TAB PO SCH ×2 (09:33→21:43)
[2022-10-24] MEDS: fentaNYL Drip 2500mCg/250mlNS 250 ML IV SCH (10:27)
[2022-10-24] MEDS: FLUCONAZOLE 200MG/100ML 100 ML IV SCH ×2 (11:53→13:34)
[2022-10-24] MEDS ORDERED: TPN PER PHARMACY IV NR ×12 (20:00)
[2022-10-24] MEDS: ATORVASTATIN 20 MG TAB PO SCH (21:47)
[2022-10-25] VITALS (104 sets, daily range): BP systolic 81–156; BP diastolic 44–76; PULSE 45–119; RESP 12–39; TEMP 98.1–99; O2SAT 93–98
[2022-10-25] MEDS: InsuLIN REG 1unit/0.01ml Soln (100units/ml) SC SCH ×4 (00:01→18:36)
[2022-10-25] MEDS: ALBUTEROL SULF 2.5 MG/0.5ML(0.5%) NEB SOLN NEB SCH ×4 (00:15→18:38)
[2022-10-25] MEDS: IPRATROPIUM BROM 0.5 MG/2.5ML INH SOL NEB SCH ×4 (00:15→18:38)
[2022-10-25] MEDS: fentaNYL Drip 2500mCg/250mlNS 250 ML IV SCH ×2 (02:40→18:29)
[2022-10-25 04:07] LABS: Alanine Aminotransferase 50 U/L (7-40); Alkaline Phosphatase 127 U/L (46-116); Anion Gap 6 (5-15); Aspartate Aminotransferase 36 U/L (13-40); BUN/Creatinine Ratio 21.4 (10.0-20.0); Blood Urea Nitrogen 12 mg/dL (9-23); Calcium 7.5 mg/dL (8.7-10.4); Carbon Dioxide 31 mmol/L (20-30); Chloride 99 mmol/L (98-107); Glucose 293 mg/dL (74-106); Magnesium 1.7 mg/dL (1.6-2.6); Potassium 3.1 mmol/L (3.5-5.1); Sodium 136 mmol/L (136-145)
[2022-10-25 04:08] LABS: Albumin 2.7 g/dL (3.2-4.8); Bilirubin, Total 0.4 mg/dL (0.2-1.0); Phosphorus 2.3 mg/dL (2.4-5.1); Total Protein 5.6 g/dL (5.7-8.2)
[2022-10-25 04:16] LABS: INR 1.08 (0.9-1.15); Prothrombin Time 11.3 sec (9.3-11.8)
[2022-10-25 04:28] LABS: Partial Thromboplastin Time 81.1 SEC (24.5-34.5)
[2022-10-25] MEDS: NOREPINEPHRINE 8 MG/250ML KIT 250 ML IV SCH ×3 (05:30→16:10)
[2022-10-25] MEDS: MAGIC MOUTHWASH 55 ML SUSP MT SCH ×4 (06:00→21:34)
[2022-10-25] MEDS: SODIUM CHLOR 0.9% PF (SALINE LOCK) 10ML VIAL/SYR IV SCH ×3 (06:14→21:31)
[2022-10-25] MEDS: ACCU-CHEK COMFORT CURVE STRIP VI SCH ×3 (06:25→18:30)
[2022-10-25] MEDS: PIPERACILLIN-TAZOB 3.375GM 100 ML IV SCH ×3 (06:25→21:24)
[2022-10-25] MEDS ORDERED: LIDOCAINE 2%HCL (LOCAL ANESTH.) INJ 20ML MDV ONE (07:47)
[2022-10-25] MEDS ORDERED: LIDOCAINE 2% JELLY 11ml (GLYDO) ONE (07:47)
[2022-10-25] MEDS ORDERED: EPINEPHrine HCL 1 MG/1 ML AMP ONE (07:48)
[2022-10-25] MEDS ORDERED: GLYCOPYRROLATE 0.2 MG/ML 1ML VIAL ONE (07:52)
[2022-10-25] MEDS ORDERED: SODIUM CHLORIDE LOCK 0 ML ONE (07:54)
[2022-10-25] MEDS ORDERED: MIDAZOLAM HCL 5 MG/ML-1ML VIAL ONE (07:55)
[2022-10-25 10:00] LABS: Base Excess 4.5 mmol/L (-2.0-2.0)
[2022-10-25] MEDS: CARVEDILOL 3.125 MG TAB PO SCH ×2 (10:00→22:00)
[2022-10-25] MEDS: DexAMETHasone SOD PHOS 10MG/1ML VIAL INJ IV SCH (11:31)
[2022-10-25] MEDS: LINEZOLID 600MG/300ML 300 ML IV SCH ×2 (11:31→21:25)
[2022-10-25] MEDS: POTASSIUM CHL 20MEQ/100ML 100 ML IV SCH ×2 (11:31→13:30)
[2022-10-25] MEDS: FUROSEMIDE 20 MG/2 ML VIAL IV SCH (11:32)
[2022-10-25] MEDS: POTASSIUM EFFERVESENT TAB 25 MEQ GT SCH (11:32)
[2022-10-25] MEDS: ASPirin 81 mg TAB PO SCH (11:33)
[2022-10-25] MEDS: PROPOFOL 100 ML IV SCH ×2 (11:37→18:22)
[2022-10-25 11:57] LABS: INR 0.99 (0.9-1.15); Partial Thromboplastin Time 34.2 SEC (24.5-34.5); Prothrombin Time 10.4 sec (9.3-11.8)
[2022-10-25] MEDS ORDERED: CALCIUM GLUC 1,000mg/50ml-NS 50 ML IV ONE (13:00)
[2022-10-25] MEDS: HEPARIN DRIP/D5W 100UNITS/ML 250 ML IV SCH ×2 (13:25→17:00)
[2022-10-25] MEDS: FLUCONAZOLE 200MG/100ML 100 ML IV SCH ×2 (13:32→15:48)
[2022-10-25 16:23] LABS: INR 1.01 (0.9-1.15); Prothrombin Time 10.6 sec (9.3-11.8)
[2022-10-25] MEDS ORDERED: SODIUM CHLORIDE IV NR ×11 (20:00)
[2022-10-25] MEDS ORDERED: SODIUM PHOSPHATES IV NR ×11 (20:00)
[2022-10-25] MEDS ORDERED: [UNRECOGNIZED DRUG - OTHER] IV NR ×11 (20:00)
[2022-10-25] MEDS ORDERED: POTASSIUM CHLORIDE IV NR ×11 (20:00)
[2022-10-25] MEDS: ATORVASTATIN 20 MG TAB PO SCH (21:17)
[2022-10-25] MEDS: INSULIN LANTUS (GLARGINE) 1 /0.01ml (100units/ml) SC SCH (21:33)
[2022-10-26] VITALS (107 sets, daily range): BP systolic 86–183; BP diastolic 45–86; PULSE 47–114; RESP 16–30; TEMP 97.5–99.3; O2SAT 91–97
[2022-10-26] MEDS: ACCU-CHEK COMFORT CURVE STRIP VI SCH ×4 (00:02→18:20)
[2022-10-26] MEDS: InsuLIN REG 1unit/0.01ml Soln (100units/ml) SC SCH ×4 (00:07→18:27)
[2022-10-26] MEDS: IPRATROPIUM BROM 0.5 MG/2.5ML INH SOL NEB SCH ×5 (00:19→23:59)
[2022-10-26] MEDS: ALBUTEROL SULF 2.5 MG/0.5ML(0.5%) NEB SOLN NEB SCH ×5 (00:19→23:59)
[2022-10-26] MEDS: PROPOFOL 100 ML IV SCH ×4 (01:06→14:50)
[2022-10-26 03:44] LABS: Basophils # (auto) 0 10 ^3/uL (0-0.2); Basophils % (auto) 0.1 % (0.0-2.0); Eosinophils # (auto) 0 10 ^3/uL (0-0.8); Hematocrit 33.7 % (41.0-53.0); Hemoglobin 10.9 g/dL (13.5-17.5); Lymphocytes # (auto) 1.1 10 ^3/uL (0.4-5.4); Lymphocytes % (auto) 7.1 % (10.0-50.0); Mean Corpuscular Hemoglobin 32.6 pg (28.0-32.0); Mean Corpuscular Hgb Conc. 32.4 g/dL (32.0-36.0); Mean Corpuscular Volume 100.7 fL (80.0-100.0); Monocytes # (auto) 0.8 10 ^3/uL (0-1.3); Monocytes % (auto) 5.1 % (0.0-12.0); Neutrophils # (auto) 13.2 10 ^3/uL (1.6-8.6); Neutrophils % (auto) 87.7 % (37.0-80.0); Nucleated Red Blood Cells % 0.1 %; Red Blood Cells 3.35 10^6/uL (4.5-5.90); Red Cell Distribution Width 16.3 % (11.8-14.3)
[2022-10-26 03:45] LABS: Alanine Aminotransferase 44 U/L (7-40); Albumin 2.7 g/dL (3.2-4.8); Alkaline Phosphatase 123 U/L (46-116); Anion Gap 3 (5-15); Aspartate Aminotransferase 27 U/L (13-40); BUN/Creatinine Ratio 31.6 (10.0-20.0); Bilirubin, Total 0.3 mg/dL (0.2-1.0); Blood Urea Nitrogen 18 mg/dL (9-23); Calcium 7.5 mg/dL (8.7-10.4); Carbon Dioxide 31 mmol/L (20-30); Chloride 100 mmol/L (98-107); Glucose 293 mg/dL (74-106); Magnesium 1.7 mg/dL (1.6-2.6); Phosphorus 3.6 mg/dL (2.4-5.1); Potassium 4.3 mmol/L (3.5-5.1); Sodium 134 mmol/L (136-145); Total Protein 5.6 g/dL (5.7-8.2)
[2022-10-26 03:50] LABS: INR 1.03 (0.9-1.15); Prothrombin Time 10.8 sec (9.3-11.8)
[2022-10-26 03:53] LABS: Partial Thromboplastin Time 78.6 SEC (24.5-34.5)
[2022-10-26] MEDS: PIPERACILLIN-TAZOB 3.375GM 100 ML IV SCH ×3 (05:45→21:37)
[2022-10-26] MEDS: SODIUM CHLOR 0.9% PF (SALINE LOCK) 10ML VIAL/SYR IV SCH ×4 (05:45→21:37)
[2022-10-26] MEDS: MAGIC MOUTHWASH 55 ML SUSP MT SCH (05:52)
[2022-10-26 06:58] LABS: Base Excess 6.2 mmol/L (-2.0-2.0)
[2022-10-26] MEDS: LINEZOLID 600MG/300ML 300 ML IV SCH ×2 (10:55→21:37)
[2022-10-26] MEDS: FLUCONAZOLE 200MG/100ML 100 ML IV SCH (10:55)
[2022-10-26] MEDS: FUROSEMIDE 20 MG/2 ML VIAL IV SCH (10:56)
[2022-10-26] MEDS: DexAMETHasone SOD PHOS 10MG/1ML VIAL INJ IV SCH (10:57)
[2022-10-26] MEDS: ASPirin 81 mg TAB PO SCH (10:57)
[2022-10-26] MEDS: CARVEDILOL 3.125 MG TAB PO SCH (10:58)
[2022-10-26] MEDS: POTASSIUM EFFERVESENT TAB 25 MEQ GT SCH (11:09)
[2022-10-26] MEDS: fentaNYL Drip 2500mCg/250mlNS 250 ML IV SCH (11:13)
[2022-10-26 11:14] LABS: INR 0.99 (0.9-1.15); Partial Thromboplastin Time 65.5 SEC (24.5-34.5); Prothrombin Time 10.4 sec (9.3-11.8)
[2022-10-26] MEDS ORDERED: PANTOPRAZOLE 40 MG/10 ML VIAL INJ IV ONE (12:00)
[2022-10-26] MEDS ORDERED: MICAFUNGIN SODIUM 100 MG in SODIUM CHL 0.9% 100 ML IV ONE (12:00)
[2022-10-26] MEDS ORDERED: LIDOCAINE 1% (LOCAL ANESTH.) PF 5ml SDV ID ONE (13:45)
[2022-10-26] MEDS: NOREPINEPHRINE 8 MG/250ML KIT 250 ML IV SCH (14:49)
[2022-10-26] MEDS: HEPARIN DRIP/D5W 100UNITS/ML 250 ML IV SCH (14:53)
[2022-10-26 17:24] LABS: INR 1.03 (0.9-1.15); Partial Thromboplastin Time 61.8 SEC (24.5-34.5); Prothrombin Time 10.8 sec (9.3-11.8)
[2022-10-26] MEDS: TPN PER PHARMACY IV NR ×11 (20:21)
[2022-10-26] MEDS: INSULIN LANTUS (GLARGINE) 1 /0.01ml (100units/ml) SC SCH (21:41)
[2022-10-26] MEDS: ATORVASTATIN 20 MG TAB PO SCH (21:46)
[2022-10-26 22:08] LABS: Urine Bacteria FEW /hpf (None Seen); Urine Blood 3+ /uL (Negative); Urine Clarity HAZY (Clear); Urine Color Yellow (Yellow); Urine Mucus FEW (None Seen); Urine Protein, UAD TRACE (Negative); Urine Specific Gravity 1.019 (1.001-1.035); Urine Urobilinogen Normal (Negative); Urine WBC 15 /hpf (0 - 3); Urine pH 5.5 (5.0-8.0)
[2022-10-27] VITALS (104 sets, daily range): BP systolic 83–155; BP diastolic 44–81; PULSE 55–128; RESP 18–46; TEMP 97.5–99.9; O2SAT 87–98
[2022-10-27] MEDS: ACCU-CHEK COMFORT CURVE STRIP VI SCH ×5 (00:03→23:34)
[2022-10-27] MEDS: InsuLIN REG 1unit/0.01ml Soln (100units/ml) SC SCH ×5 (00:12→23:36)
[2022-10-27 00:17] LABS: Partial Thromboplastin Time 61.2 SEC (24.5-34.5); Prothrombin Time 10.5 sec (9.3-11.8)
[2022-10-27] MEDS: PROPOFOL 100 ML IV SCH ×5 (03:57→22:22)
[2022-10-27 04:27] LABS: Basophils # (auto) 0 10 ^3/uL (0-0.2); Eosinophils # (auto) 0 10 ^3/uL (0-0.8); Hematocrit 31.8 % (41.0-53.0); Lymphocytes # (auto) 0.9 10 ^3/uL (0.4-5.4); Monocytes # (auto) 0.5 10 ^3/uL (0-1.3); Neutrophils % (auto) 88.4 % (37.0-80.0); Nucleated Red Blood Cells % 0.1 %; Red Blood Cells 2.96 10^6/uL (4.5-5.90); White Blood Cell 12.6 10^3/uL (4.4-10.8)
[2022-10-27 04:30] LABS: Basophils % (auto) 0.1 % (0.0-2.0); Hemoglobin 10.1 g/dL (13.5-17.5); Lymphocytes % (auto) 7.4 % (10.0-50.0); Mean Corpuscular Hemoglobin 34.1 pg (28.0-32.0); Mean Corpuscular Hgb Conc. 31.7 g/dL (32.0-36.0); Mean Corpuscular Volume 107.7 fL (80.0-100.0); Monocytes % (auto) 4.1 % (0.0-12.0); Neutrophils # (auto) 11.1 10 ^3/uL (1.6-8.6); Red Cell Distribution Width 17.4 % (11.8-14.3)
[2022-10-27 05:02] LABS: Prothrombin Time 10.5 sec (9.3-11.8)
[2022-10-27] MEDS: PIPERACILLIN-TAZOB 3.375GM 100 ML IV SCH ×3 (05:48→22:21)
[2022-10-27] MEDS: SODIUM CHLOR 0.9% PF (SALINE LOCK) 10ML VIAL/SYR IV SCH ×5 (05:54→22:21)
[2022-10-27] MEDS: IPRATROPIUM BROM 0.5 MG/2.5ML INH SOL NEB SCH ×3 (06:11→18:20)
[2022-10-27] MEDS: ALBUTEROL SULF 2.5 MG/0.5ML(0.5%) NEB SOLN NEB SCH ×3 (06:11→18:20)
[2022-10-27 06:38] LABS: Alanine Aminotransferase 54 U/L (7-40); Alkaline Phosphatase 121 U/L (46-116); Anion Gap 2 (5-15); BUN/Creatinine Ratio 42.9 (10.0-20.0); Blood Urea Nitrogen 21 mg/dL (9-23); Calcium 7.6 mg/dL (8.7-10.4); Carbon Dioxide 33 mmol/L (20-30); Chloride 99 mmol/L (98-107); Magnesium 2.3 mg/dL (1.6-2.6); Potassium 4.6 mmol/L (3.5-5.1); Sodium 134 mmol/L (136-145)
[2022-10-27 06:39] LABS: Albumin 2.5 g/dL (3.2-4.8); Aspartate Aminotransferase 51 U/L (13-40); Bilirubin, Total 0.4 mg/dL (0.2-1.0); Phosphorus 3.2 mg/dL (2.4-5.1); Total Protein 5.2 g/dL (5.7-8.2)
[2022-10-27 06:40] LABS: Glucose 162 mg/dL (74-106)
[2022-10-27 06:43] LABS: Triglycerides 81 mg/dL (< 150)
[2022-10-27 06:58] LABS: Base Excess 8.3 mmol/L (-2.0-2.0)
[2022-10-27] MEDS ORDERED: ROCURONIUM 10MG/ML 10ML VIAL IV ONE ×2 (08:07→08:15)
[2022-10-27 09:01] LABS: Base Excess 4.7 mmol/L (-2.0-2.0)
[2022-10-27] MEDS: POTASSIUM EFFERVESENT TAB 25 MEQ GT SCH (09:36)
[2022-10-27] MEDS: LINEZOLID 600MG/300ML 300 ML IV SCH ×2 (09:41→20:20)
[2022-10-27] MEDS: ASPirin 81 mg TAB PO SCH (09:42)
[2022-10-27] MEDS: PANTOPRAZOLE 40 MG/10 ML VIAL INJ IV SCH (09:42)
[2022-10-27] MEDS: fentaNYL Drip 2500mCg/250mlNS 250 ML IV SCH ×2 (10:14→17:25)
[2022-10-27] MEDS: FUROSEMIDE 20 MG/2 ML VIAL IV SCH (10:15)
[2022-10-27] MEDS: MICAFUNGIN SODIUM 100 MG in SODIUM CHL 0.9% 100 ML IV SCH (10:26)
[2022-10-27] MEDS: ROCURONIUM 10MG/ML 10ML VIAL IV PRN (11:58)
[2022-10-27] MEDS: ROCURONIUM BROMIDE 1,000 MG in D5W 5% 150 ML IV SCH ×2 (14:45→15:48)
[2022-10-27] MEDS ORDERED: SODIUM CHLORIDE 0.9% 250 ML IV ONE (15:15)
[2022-10-27 16:57] LABS: Base Excess 3.6 mmol/L (-2.0-2.0)
[2022-10-27] MEDS ORDERED: TPN PER PHARMACY IV NR ×11 (20:00)
[2022-10-27] MEDS: NOREPINEPHRINE 8 MG/250ML KIT 250 ML IV SCH (20:24)
[2022-10-27] MEDS: TPN PER PHARMACY IV NR ×11 (20:26)
[2022-10-27] MEDS: INSULIN LANTUS (GLARGINE) 1 /0.01ml (100units/ml) SC SCH (22:19)
[2022-10-28] VITALS (107 sets, daily range): BP systolic 78–142; BP diastolic 35–65; PULSE 69–174; RESP 22–25; TEMP 96.8–99.7; O2SAT 92–99
[2022-10-28] MEDS: ALBUTEROL SULF 2.5 MG/0.5ML(0.5%) NEB SOLN NEB SCH ×4 (00:06→18:18)
[2022-10-28] MEDS: IPRATROPIUM BROM 0.5 MG/2.5ML INH SOL NEB SCH ×4 (00:06→18:18)
[2022-10-28] MEDS: fentaNYL Drip 2500mCg/250mlNS 250 ML IV SCH ×2 (01:37→09:58)
[2022-10-28] MEDS: PROPOFOL 100 ML IV SCH ×4 (02:39→23:14)
[2022-10-28 04:15] LABS: Basophils # (auto) 0 10 ^3/uL (0-0.2); Basophils % (auto) 0.1 % (0.0-2.0); Eosinophils # (auto) 0 10 ^3/uL (0-0.8); Eosinophils % (auto) 0.2 % (0.0-7.0); Hematocrit 32.5 % (41.0-53.0); Hemoglobin 10.7 g/dL (13.5-17.5); Lymphocytes % (auto) 6.9 % (10.0-50.0); Mean Corpuscular Hemoglobin 33.3 pg (28.0-32.0); Mean Corpuscular Hgb Conc. 32.9 g/dL (32.0-36.0); Mean Corpuscular Volume 101.2 fL (80.0-100.0); Monocytes # (auto) 0.4 10 ^3/uL (0-1.3); Monocytes % (auto) 2.6 % (0.0-12.0); Neutrophils # (auto) 13.8 10 ^3/uL (1.6-8.6); Neutrophils % (auto) 90.2 % (37.0-80.0); Nucleated Red Blood Cells % 0.3 %; Red Blood Cells 3.21 10^6/uL (4.5-5.90); Red Cell Distribution Width 16.5 % (11.8-14.3); White Blood Cell 15.2 10^3/uL (4.4-10.8)
[2022-10-28 04:36] LABS: Alanine Aminotransferase 77 U/L (7-40); Alkaline Phosphatase 146 U/L (46-116); Anion Gap 2 (5-15); Aspartate Aminotransferase 78 U/L (13-40); BUN/Creatinine Ratio 46.3 (10.0-20.0); Blood Urea Nitrogen 25 mg/dL (9-23); Calcium 7.6 mg/dL (8.7-10.4); Carbon Dioxide 32 mmol/L (20-30); Chloride 96 mmol/L (98-107); Glucose 130 mg/dL (74-106); Potassium 4.7 mmol/L (3.5-5.1); Sodium 130 mmol/L (136-145)
[2022-10-28 04:37] LABS: Bilirubin, Total 0.5 mg/dL (0.2-1.0); Phosphorus 3.8 mg/dL (2.4-5.1); Total Protein 5.7 g/dL (5.7-8.2)
[2022-10-28] MEDS: ACCU-CHEK COMFORT CURVE STRIP VI SCH ×3 (05:42→18:00)
[2022-10-28] MEDS: PIPERACILLIN-TAZOB 3.375GM 100 ML IV SCH ×2 (05:42→14:00)
[2022-10-28] MEDS: SODIUM CHLOR 0.9% PF (SALINE LOCK) 10ML VIAL/SYR IV SCH ×5 (05:42→22:00)
[2022-10-28] MEDS: InsuLIN REG 1unit/0.01ml Soln (100units/ml) SC SCH ×3 (05:49→18:00)
[2022-10-28 07:18] LABS: Base Excess 4.9 mmol/L (-2.0-2.0)
[2022-10-28] MEDS: NOREPINEPHRINE 8 MG/250ML KIT 250 ML IV SCH (07:56)
[2022-10-28] MEDS: PANTOPRAZOLE 40 MG/10 ML VIAL INJ IV SCH (09:58)
[2022-10-28] MEDS: ASPirin 81 mg TAB PO SCH ×2 (09:58→10:00)
[2022-10-28] MEDS: LINEZOLID 600MG/300ML 300 ML IV SCH ×2 (09:58→20:31)
[2022-10-28] MEDS: MICAFUNGIN SODIUM 100 MG in SODIUM CHL 0.9% 100 ML IV SCH (10:00)
[2022-10-28] MEDS ORDERED: ACYCLOVIR 10MG/KG Q8HR PER RX 0 ML IV SCH (14:30)
[2022-10-28] MEDS: ACYCLOVIR SOD 50MG/ML 700 MG in SODIUM CHL 0.9% 250 ML IV SCH (17:00)
[2022-10-28] MEDS: MIDAZOLAM DRIP 50 mg/50mL 50 ML IV SCH (17:01)
[2022-10-28] MEDS ORDERED: SODIUM CHLORIDE 0.9% 500 ML IV ONE (19:30)
[2022-10-28] MEDS ORDERED: TPN PER PHARMACY IV NR ×10 (20:00)
[2022-10-28] MEDS: ROCURONIUM BROMIDE 1,000 MG in D5W 5% 150 ML IV SCH (20:18)
[2022-10-28 20:23] LABS: Base Excess -1.6 mmol/L (-2.0-2.0)
[2022-10-28] MEDS: INSULIN LANTUS (GLARGINE) 1 /0.01ml (100units/ml) SC SCH (22:00)
[2022-10-28] MEDS ORDERED: AMIODARONE BOLUS KIT 100 ML IV ONE (22:30)
[2022-10-28] MEDS ORDERED: AMIODARONE 450mg/250ml AE 250 ML IV ONE (22:39)
[2022-10-28] MEDS ORDERED: AMIODARONE HCL (50 MG/ ML) 3 ML VIAL IV ONE (22:39)
[2022-10-28] MEDS: MEROPENEM 1GM IVPB 100 ML IV SCH (22:44)
[2022-10-28] MEDS ORDERED: AMIODARONE 450mg/250ml AE 250 ML IV SCH (22:45)
[2022-10-29] VITALS (100 sets, daily range): BP systolic 53–142; BP diastolic 27–80; PULSE 67–137; RESP 11–25; TEMP 95.9–99; O2SAT 91–99
[2022-10-29] MEDS: ACCU-CHEK COMFORT CURVE STRIP VI SCH ×5 (00:05→23:46)
[2022-10-29] MEDS: IPRATROPIUM BROM 0.5 MG/2.5ML INH SOL NEB SCH ×4 (00:08→18:43)
[2022-10-29] MEDS: ALBUTEROL SULF 2.5 MG/0.5ML(0.5%) NEB SOLN NEB SCH (00:08)
[2022-10-29] MEDS: InsuLIN REG 1unit/0.01ml Soln (100units/ml) SC SCH ×5 (00:16→23:47)
[2022-10-29] MEDS: MIDAZOLAM DRIP 50 mg/50mL 50 ML IV SCH ×7 (00:17→21:04)
[2022-10-29] MEDS: NOREPINEPHRINE 8 MG/250ML KIT 250 ML IV SCH ×3 (02:04→19:43)
[2022-10-29] MEDS: ACYCLOVIR SOD 50MG/ML 700 MG in SODIUM CHL 0.9% 250 ML IV SCH ×2 (02:08→09:57)
[2022-10-29] MEDS: fentaNYL Drip 2500mCg/250mlNS 250 ML IV SCH ×2 (02:40→10:08)
[2022-10-29 04:13] LABS: Monocytes # (auto) 0.1 10 ^3/uL (0-1.3); Nucleated Red Blood Cells % 0.1 %; White Blood Cell 14.4 10^3/uL (4.4-10.8)
[2022-10-29 04:16] LABS: Basophils # (auto) 0 10 ^3/uL (0-0.2); Basophils % (auto) 0.3 % (0.0-2.0); Eosinophils # (auto) 0.1 10 ^3/uL (0-0.8); Eosinophils % (auto) 0.4 % (0.0-7.0); Hematocrit 28.9 % (41.0-53.0); Hemoglobin 9.3 g/dL (13.5-17.5); Lymphocytes # (auto) 0.9 10 ^3/uL (0.4-5.4); Lymphocytes % (auto) 6.2 % (10.0-50.0); Mean Corpuscular Hemoglobin 34.7 pg (28.0-32.0); Mean Corpuscular Hgb Conc. 32.1 g/dL (32.0-36.0); Mean Corpuscular Volume 108.2 fL (80.0-100.0); Monocytes % (auto) 0.8 % (0.0-12.0); Neutrophils # (auto) 13.3 10 ^3/uL (1.6-8.6); Neutrophils % (auto) 92.3 % (37.0-80.0); Red Blood Cells 2.67 10^6/uL (4.5-5.90)
[2022-10-29] MEDS ORDERED: AMIODARONE 450mg/250ml AE 250 ML IV SCH (04:45)
[2022-10-29 05:24] LABS: Chloride 99 mmol/L (98-107); Potassium 4.6 mmol/L (3.5-5.1); Sodium 129 mmol/L (136-145)
[2022-10-29 05:26] LABS: Carbon Dioxide 31 mmol/L (20-30)
[2022-10-29 05:27] LABS: Calcium 7.6 mg/dL (8.7-10.4)
[2022-10-29 05:31] LABS: Glucose 165 mg/dL (74-106)
[2022-10-29] MEDS: SODIUM CHLOR 0.9% PF (SALINE LOCK) 10ML VIAL/SYR IV SCH ×5 (05:31→22:00)
[2022-10-29] MEDS: MEROPENEM 1GM IVPB 100 ML IV SCH ×3 (05:31→23:08)
[2022-10-29 05:32] LABS: Alkaline Phosphatase 128 U/L (46-116); Blood Urea Nitrogen 19 mg/dL (9-23); Magnesium 1.7 mg/dL (1.6-2.6)
[2022-10-29 05:33] LABS: Alanine Aminotransferase 52 U/L (7-40); Albumin 2.8 g/dL (3.2-4.8)
[2022-10-29 05:34] LABS: Bilirubin, Total 0.5 mg/dL (0.2-1.0); Total Protein 5.3 g/dL (5.7-8.2)
[2022-10-29 05:53] LABS: Anion Gap -1 (5-15); Aspartate Aminotransferase 57 U/L (13-40)
[2022-10-29] MEDS: LEVALBUTEROL HCL 1.25 MG/3 ML NEB NEB SCH ×3 (06:15→18:43)
[2022-10-29] MEDS: PROPOFOL 100 ML IV SCH ×2 (07:06→15:40)
[2022-10-29 08:21] LABS: Base Excess 2.4 mmol/L (-2.0-2.0)
[2022-10-29] MEDS: PANTOPRAZOLE 40 MG/10 ML VIAL INJ IV SCH (09:58)
[2022-10-29] MEDS: ASPirin 81 mg TAB PO SCH ×2 (09:59→10:12)
[2022-10-29] MEDS: MICAFUNGIN SODIUM 100 MG in SODIUM CHL 0.9% 100 ML IV SCH (10:08)
[2022-10-29] MEDS: LINEZOLID 600MG/300ML 300 ML IV SCH (10:08)
[2022-10-29] MEDS: ACYCLOVIR SOD IV SCH (17:42)
[2022-10-29] MEDS: D5W 5% IV SCH (17:42)
[2022-10-29] MEDS: ROCURONIUM BROMIDE 1,000 MG in D5W 5% 150 ML IV SCH (19:56)
[2022-10-29] MEDS ORDERED: TPN PER PHARMACY IV NR ×10 (20:00)
[2022-10-29] MEDS: INSULIN LANTUS (GLARGINE) 1 /0.01ml (100units/ml) SC SCH (22:20)
[2022-10-30] VITALS (104 sets, daily range): BP systolic 74–147; BP diastolic 40–74; PULSE 72–137; RESP 18–25; TEMP 96.8–98.8; O2SAT 93–100
[2022-10-30] MEDS: IPRATROPIUM BROM 0.5 MG/2.5ML INH SOL NEB SCH ×4 (00:20→19:15)
[2022-10-30] MEDS: LEVALBUTEROL HCL 1.25 MG/3 ML NEB NEB SCH ×4 (00:20→19:15)
[2022-10-30] MEDS: MIDAZOLAM DRIP 50 mg/50mL 50 ML IV SCH ×5 (00:34→22:03)
[2022-10-30] MEDS: NOREPINEPHRINE 8 MG/250ML KIT 250 ML IV SCH ×4 (01:29→23:01)
[2022-10-30] MEDS: ACYCLOVIR SOD IV SCH ×3 (01:29→17:10)
[2022-10-30] MEDS: D5W 5% IV SCH ×3 (01:29→17:10)
[2022-10-30] MEDS: fentaNYL Drip 2500mCg/250mlNS 250 ML IV SCH ×3 (03:23→19:44)
[2022-10-30] MEDS: PROPOFOL 100 ML IV SCH ×2 (03:26→11:27)
[2022-10-30 04:16] LABS: Basophils # (auto) 0 10 ^3/uL (0-0.2); Basophils % (auto) 0.1 % (0.0-2.0); Eosinophils # (auto) 0.1 10 ^3/uL (0-0.8); Hemoglobin 9.8 g/dL (13.5-17.5); Monocytes # (auto) 0.2 10 ^3/uL (0-1.3); Red Cell Distribution Width 16.6 % (11.8-14.3)
[2022-10-30 04:18] LABS: Eosinophils % (auto) 0.5 % (0.0-7.0); Hematocrit 29.9 % (41.0-53.0); Lymphocytes # (auto) 1.2 10 ^3/uL (0.4-5.4); Lymphocytes % (auto) 8.4 % (10.0-50.0); Mean Corpuscular Hemoglobin 33.1 pg (28.0-32.0); Mean Corpuscular Hgb Conc. 32.8 g/dL (32.0-36.0); Mean Corpuscular Volume 100.9 fL (80.0-100.0); Monocytes % (auto) 1.3 % (0.0-12.0); Neutrophils # (auto) 12.4 10 ^3/uL (1.6-8.6); Neutrophils % (auto) 89.7 % (37.0-80.0); Nucleated Red Blood Cells % 0.1 %; Red Blood Cells 2.97 10^6/uL (4.5-5.90); White Blood Cell 13.8 10^3/uL (4.4-10.8)
[2022-10-30 04:32] LABS: Alanine Aminotransferase 41 U/L (7-40); Albumin 2.7 g/dL (3.2-4.8); Alkaline Phosphatase 172 U/L (46-116); Anion Gap 1 (5-15); Aspartate Aminotransferase 57 U/L (13-40); BUN/Creatinine Ratio 45.7 (10.0-20.0); Blood Urea Nitrogen 21 mg/dL (9-23); Calcium 7.6 mg/dL (8.7-10.4); Carbon Dioxide 32 mmol/L (20-30); Chloride 103 mmol/L (98-107); Glucose 139 mg/dL (74-106); Magnesium 1.8 mg/dL (1.6-2.6); Potassium 4.3 mmol/L (3.5-5.1); Sodium 136 mmol/L (136-145)
[2022-10-30 04:33] LABS: Bilirubin, Total 0.4 mg/dL (0.2-1.0); Phosphorus 2.4 mg/dL (2.4-5.1); Total Protein 5.1 g/dL (5.7-8.2)
[2022-10-30 05:08] LABS: Triglycerides 79 mg/dL (< 150)
[2022-10-30] MEDS: SODIUM CHLOR 0.9% PF (SALINE LOCK) 10ML VIAL/SYR IV SCH ×5 (05:44→22:04)
[2022-10-30] MEDS: MEROPENEM 1GM IVPB 100 ML IV SCH ×3 (05:44→22:03)
[2022-10-30] MEDS: InsuLIN REG 1unit/0.01ml Soln (100units/ml) SC SCH ×3 (06:00→17:47)
[2022-10-30] MEDS: ACCU-CHEK COMFORT CURVE STRIP VI SCH ×3 (06:00→17:10)
[2022-10-30] MEDS: PANTOPRAZOLE 40 MG/10 ML VIAL INJ IV SCH (09:57)
[2022-10-30] MEDS: MICAFUNGIN SODIUM 100 MG in SODIUM CHL 0.9% 100 ML IV SCH (09:58)
[2022-10-30] MEDS ORDERED: AMIODARONE 450mg/250ml AE 250 ML IV ONE (10:41)
[2022-10-30] MEDS: AMIODARONE 450mg/250ml AE 250 ML IV SCH (10:50)
[2022-10-30] MEDS: methylPREDNISolone SOD SUCC 125 MG/2 ML VL IV SCH ×2 (14:43→22:05)
[2022-10-30] MEDS: ROCURONIUM BROMIDE 1,000 MG in D5W 5% 150 ML IV SCH (14:45)
[2022-10-30] MEDS ORDERED: TPN PER PHARMACY IV NR ×11 (20:00)
[2022-10-30] MEDS: INSULIN LANTUS (GLARGINE) 1 /0.01ml (100units/ml) SC SCH (22:10)
[2022-10-31] VITALS (105 sets, daily range): BP systolic 73–143; BP diastolic 41–76; PULSE 58–93; RESP 17–25; TEMP 94.3–99.7; O2SAT 93–100
[2022-10-31] MEDS: LEVALBUTEROL HCL 1.25 MG/3 ML NEB NEB SCH ×4 (00:05→18:15)
[2022-10-31] MEDS: IPRATROPIUM BROM 0.5 MG/2.5ML INH SOL NEB SCH ×4 (00:05→18:15)
[2022-10-31] MEDS: MIDAZOLAM DRIP 50 mg/50mL 50 ML IV SCH ×5 (00:16→23:48)
[2022-10-31] MEDS: ACCU-CHEK COMFORT CURVE STRIP VI SCH ×4 (00:16→17:46)
[2022-10-31] MEDS: InsuLIN REG 1unit/0.01ml Soln (100units/ml) SC SCH ×4 (00:22→17:52)
[2022-10-31] MEDS: PROPOFOL 100 ML IV SCH ×3 (01:08→15:23)
[2022-10-31] MEDS: AMIODARONE 450mg/250ml AE 250 ML IV SCH ×2 (01:10→22:45)
[2022-10-31] MEDS: ACYCLOVIR SOD IV SCH ×3 (02:59→17:49)
[2022-10-31] MEDS: D5W 5% IV SCH ×3 (02:59→17:49)
[2022-10-31 04:12] LABS: Basophils # (auto) 0 10 ^3/uL (0-0.2); Basophils % (auto) 0.1 % (0.0-2.0); Eosinophils # (auto) 0 10 ^3/uL (0-0.8); Hemoglobin 9.2 g/dL (13.5-17.5); Lymphocytes # (auto) 0.5 10 ^3/uL (0.4-5.4); Monocytes # (auto) 0.1 10 ^3/uL (0-1.3); Nucleated Red Blood Cells % 0.1 %
[2022-10-31 04:15] LABS: Hematocrit 27.9 % (41.0-53.0); Lymphocytes % (auto) 5.3 % (10.0-50.0); Mean Corpuscular Hemoglobin 34.2 pg (28.0-32.0); Mean Corpuscular Hgb Conc. 32.9 g/dL (32.0-36.0); Mean Corpuscular Volume 103.9 fL (80.0-100.0); Neutrophils # (auto) 8.7 10 ^3/uL (1.6-8.6); Neutrophils % (auto) 93.6 % (37.0-80.0); Red Blood Cells 2.69 10^6/uL (4.5-5.90); Red Cell Distribution Width 17.3 % (11.8-14.3); White Blood Cell 9.3 10^3/uL (4.4-10.8)
[2022-10-31 04:27] LABS: Alanine Aminotransferase 40 U/L (7-40); Albumin 2.3 g/dL (3.2-4.8); Alkaline Phosphatase 168 U/L (46-116); Aspartate Aminotransferase 55 U/L (13-40); BUN/Creatinine Ratio 39.2 (10.0-20.0); Bilirubin, Total 0.3 mg/dL (0.2-1.0); Blood Urea Nitrogen 20 mg/dL (9-23); Calcium 7.2 mg/dL (8.7-10.4); Chloride 101 mmol/L (98-107); Magnesium 1.7 mg/dL (1.6-2.6); Phosphorus 2.1 mg/dL (2.4-5.1); Potassium 4.3 mmol/L (3.5-5.1); Sodium 134 mmol/L (136-145); Total Protein 4.9 g/dL (5.7-8.2)
[2022-10-31 04:52] LABS: Glucose 426 mg/dL (74-106)
[2022-10-31 04:54] LABS: Anion Gap 3 (5-15); Carbon Dioxide 30 mmol/L (20-30)
[2022-10-31] MEDS: fentaNYL Drip 2500mCg/250mlNS 250 ML IV SCH ×2 (05:39→21:57)
[2022-10-31] MEDS: methylPREDNISolone SOD SUCC 125 MG/2 ML VL IV SCH ×3 (06:35→21:55)
[2022-10-31] MEDS: SODIUM CHLOR 0.9% PF (SALINE LOCK) 10ML VIAL/SYR IV SCH ×5 (06:36→21:55)
[2022-10-31] MEDS: MEROPENEM 1GM IVPB 100 ML IV SCH ×3 (06:36→21:55)
[2022-10-31] MEDS: NOREPINEPHRINE 8 MG/250ML KIT 250 ML IV SCH (07:30)
[2022-10-31] MEDS ORDERED: SODIUM PHOSPHATES 24 MEQ in SODIUM CHL 0.9% 100 ML IV ONE (08:45)
[2022-10-31] MEDS ORDERED: MAGNESIUM SULFATE 1GM/100ML 100 ML IV ONE (08:45)
[2022-10-31 09:05] LABS: Base Excess 5.9 mmol/L (-2.0-2.0)
[2022-10-31] MEDS: PANTOPRAZOLE 40 MG/10 ML VIAL INJ IV SCH (10:37)
[2022-10-31] MEDS: MICAFUNGIN SODIUM 100 MG in SODIUM CHL 0.9% 100 ML IV SCH (10:38)
[2022-10-31] MEDS: ROCURONIUM BROMIDE 1,000 MG in D5W 5% 150 ML IV SCH (14:45)
[2022-10-31] MEDS ORDERED: TPN PER PHARMACY IV NR ×10 (20:00)
[2022-10-31] MEDS: INSULIN LANTUS (GLARGINE) 1 /0.01ml (100units/ml) SC SCH (21:56)
[2022-11-01] VITALS (111 sets, daily range): BP systolic 91–137; BP diastolic 44–74; PULSE 67–107; RESP 13–27; TEMP 96.7–98.4; O2SAT 92–100
[2022-11-01] MEDS: IPRATROPIUM BROM 0.5 MG/2.5ML INH SOL NEB SCH ×5 (00:44→23:42)
[2022-11-01] MEDS: LEVALBUTEROL HCL 1.25 MG/3 ML NEB NEB SCH ×5 (00:45→23:42)
[2022-11-01] MEDS: NOREPINEPHRINE 8 MG/250ML KIT 250 ML IV SCH (01:08)
[2022-11-01] MEDS: InsuLIN REG 1unit/0.01ml Soln (100units/ml) SC SCH ×4 (01:14→17:53)
[2022-11-01] MEDS: ACCU-CHEK COMFORT CURVE STRIP VI SCH ×4 (01:22→17:51)
[2022-11-01] MEDS: ACYCLOVIR SOD IV SCH ×3 (03:32→17:50)
[2022-11-01] MEDS: D5W 5% IV SCH ×3 (03:32→17:50)
[2022-11-01 04:01] LABS: Basophils # (auto) 0 10 ^3/uL (0-0.2); Basophils % (auto) 0.1 % (0.0-2.0); Eosinophils # (auto) 0 10 ^3/uL (0-0.8); Hemoglobin 8.9 g/dL (13.5-17.5); Lymphocytes # (auto) 0.3 10 ^3/uL (0.4-5.4); Monocytes # (auto) 0.3 10 ^3/uL (0-1.3); Nucleated Red Blood Cells % 0.1 %
[2022-11-01 04:03] LABS: Hematocrit 26.5 % (41.0-53.0); Lymphocytes % (auto) 2.8 % (10.0-50.0); Mean Corpuscular Hemoglobin 34.4 pg (28.0-32.0); Mean Corpuscular Hgb Conc. 33.7 g/dL (32.0-36.0); Mean Corpuscular Volume 102.1 fL (80.0-100.0); Monocytes % (auto) 2.7 % (0.0-12.0); Neutrophils # (auto) 9.4 10 ^3/uL (1.6-8.6); Neutrophils % (auto) 94.4 % (37.0-80.0); Red Blood Cells 2.59 10^6/uL (4.5-5.90); Red Cell Distribution Width 17.7 % (11.8-14.3); White Blood Cell 9.9 10^3/uL (4.4-10.8)
[2022-11-01 04:14] LABS: Alanine Aminotransferase 117 U/L (7-40); Albumin 2.4 g/dL (3.2-4.8); Alkaline Phosphatase 240 U/L (46-116); Anion Gap 2 (5-15); Aspartate Aminotransferase 200 U/L (13-40); Calcium 7.6 mg/dL (8.7-10.4); Carbon Dioxide 33 mmol/L (20-30); Chloride 108 mmol/L (98-107); Magnesium 2.2 mg/dL (1.6-2.6); Potassium 4.1 mmol/L (3.5-5.1); Sodium 143 mmol/L (136-145)
[2022-11-01 04:15] LABS: Bilirubin, Total 0.3 mg/dL (0.2-1.0); Phosphorus 2.5 mg/dL (2.4-5.1); Total Protein 5.1 g/dL (5.7-8.2)
[2022-11-01 04:17] LABS: Blood Urea Nitrogen 33 mg/dL (9-23); Glucose 216 mg/dL (74-106)
[2022-11-01] MEDS: methylPREDNISolone SOD SUCC 125 MG/2 ML VL IV SCH ×3 (06:01→22:07)
[2022-11-01] MEDS: SODIUM CHLOR 0.9% PF (SALINE LOCK) 10ML VIAL/SYR IV SCH ×5 (06:01→22:08)
[2022-11-01] MEDS: MEROPENEM 1GM IVPB 100 ML IV SCH ×3 (06:02→22:09)
[2022-11-01] MEDS: MIDAZOLAM DRIP 50 mg/50mL 50 ML IV SCH ×5 (06:57→22:20)
[2022-11-01 07:40] LABS: Base Excess 5.5 mmol/L (-2.0-2.0)
[2022-11-01] MEDS: MICAFUNGIN SODIUM 100 MG in SODIUM CHL 0.9% 100 ML IV SCH (10:09)
[2022-11-01] MEDS: PANTOPRAZOLE 40 MG/10 ML VIAL INJ IV SCH (10:09)
[2022-11-01] MEDS: PROPOFOL 100 ML IV SCH ×2 (10:28→16:29)
[2022-11-01] MEDS ORDERED: CALCIUM GLUC 1,000mg/50ml-NS 50 ML IV ONE (11:00)
[2022-11-01] MEDS: fentaNYL Drip 2500mCg/250mlNS 250 ML IV SCH ×2 (11:58→18:45)
[2022-11-01] MEDS: METOCLOPRAMIDE HCL 5MG/ml INJ 2ml VIAL IV SCH ×2 (13:30→22:08)
[2022-11-01] MEDS: AMIODARONE 450mg/250ml AE 250 ML IV SCH (13:45)
[2022-11-01] MEDS: ROCURONIUM BROMIDE 1,000 MG in D5W 5% 150 ML IV SCH (14:45)
[2022-11-01] MEDS ORDERED: TPN PER PHARMACY IV NR ×7 (20:00)
[2022-11-01] MEDS: INSULIN LANTUS (GLARGINE) 1 /0.01ml (100units/ml) SC SCH (22:17)
[2022-11-02] VITALS (107 sets, daily range): BP systolic 76–155; BP diastolic 23–64; PULSE 61–91; RESP 18–29; TEMP 95.9–98.2; O2SAT 93–100
[2022-11-02] MEDS: ACCU-CHEK COMFORT CURVE STRIP VI SCH ×4 (00:04→18:23)
[2022-11-02] MEDS: InsuLIN REG 1unit/0.01ml Soln (100units/ml) SC SCH ×4 (00:07→18:51)
[2022-11-02] MEDS: PROPOFOL 100 ML IV SCH ×3 (00:27→21:00)
[2022-11-02] MEDS: NOREPINEPHRINE 8 MG/250ML KIT 250 ML IV SCH (00:28)
[2022-11-02] MEDS: D5W 5% IV SCH ×3 (01:47→18:23)
[2022-11-02] MEDS: ACYCLOVIR SOD IV SCH ×3 (01:47→18:23)
[2022-11-02] MEDS: MIDAZOLAM DRIP 50 mg/50mL 50 ML IV SCH ×6 (01:51→20:02)
[2022-11-02] MEDS: fentaNYL Drip 2500mCg/250mlNS 250 ML IV SCH ×3 (02:10→18:23)
[2022-11-02 04:36] LABS: Basophils # (auto) 0 10 ^3/uL (0-0.2); Eosinophils # (auto) 0 10 ^3/uL (0-0.8); Hemoglobin 8.5 g/dL (13.5-17.5); Monocytes # (auto) 0.4 10 ^3/uL (0-1.3)
[2022-11-02 04:38] LABS: Hematocrit 26.4 % (41.0-53.0); Lymphocytes # (auto) 0.3 10 ^3/uL (0.4-5.4); Lymphocytes % (auto) 2.4 % (10.0-50.0); Mean Corpuscular Hemoglobin 33.4 pg (28.0-32.0); Mean Corpuscular Hgb Conc. 32.3 g/dL (32.0-36.0); Mean Corpuscular Volume 103.6 fL (80.0-100.0); Monocytes % (auto) 3.7 % (0.0-12.0); Neutrophils # (auto) 10.1 10 ^3/uL (1.6-8.6); Neutrophils % (auto) 93.9 % (37.0-80.0); Nucleated Red Blood Cells % 0.2 %; Red Blood Cells 2.55 10^6/uL (4.5-5.90); Red Cell Distribution Width 17.6 % (11.8-14.3); White Blood Cell 10.7 10^3/uL (4.4-10.8)
[2022-11-02] MEDS: AMIODARONE 450mg/250ml AE 250 ML IV SCH (04:45)
[2022-11-02 04:51] LABS: Alanine Aminotransferase 156 U/L (7-40); Albumin 2.4 g/dL (3.2-4.8); Alkaline Phosphatase 225 U/L (46-116); Anion Gap 0 (5-15); Aspartate Aminotransferase 185 U/L (13-40); BUN/Creatinine Ratio 71.4 (10.0-20.0); Bilirubin, Total 0.2 mg/dL (0.2-1.0); Blood Urea Nitrogen 40 mg/dL (9-23); Calcium 7.9 mg/dL (8.7-10.4); Carbon Dioxide 36 mmol/L (20-30); Chloride 109 mmol/L (98-107); Glucose 166 mg/dL (74-106); Magnesium 2.1 mg/dL (1.6-2.6); Phosphorus 4.2 mg/dL (2.4-5.1); Potassium 4.7 mmol/L (3.5-5.1); Sodium 145 mmol/L (136-145); Total Protein 5.1 g/dL (5.7-8.2)
[2022-11-02] MEDS: methylPREDNISolone SOD SUCC 125 MG/2 ML VL IV SCH ×2 (06:08→13:56)
[2022-11-02] MEDS: METOCLOPRAMIDE HCL 5MG/ml INJ 2ml VIAL IV SCH ×3 (06:08→22:06)
[2022-11-02] MEDS: SODIUM CHLOR 0.9% PF (SALINE LOCK) 10ML VIAL/SYR IV SCH ×5 (06:09→22:07)
[2022-11-02] MEDS: MEROPENEM 1GM IVPB 100 ML IV SCH ×3 (06:12→22:07)
[2022-11-02] MEDS: LEVALBUTEROL HCL 1.25 MG/3 ML NEB NEB SCH ×3 (06:32→18:32)
[2022-11-02] MEDS: IPRATROPIUM BROM 0.5 MG/2.5ML INH SOL NEB SCH ×3 (06:32→18:31)
[2022-11-02 07:38] LABS: Base Excess 3.6 mmol/L (-2.0-2.0)
[2022-11-02] MEDS: MICAFUNGIN SODIUM 100 MG in SODIUM CHL 0.9% 100 ML IV SCH (09:47)
[2022-11-02] MEDS: PANTOPRAZOLE 40 MG/10 ML VIAL INJ IV SCH (09:47)
[2022-11-02] MEDS: POTASSIUM CHLORIDE IV NR ×7 (20:08)
[2022-11-02] MEDS: MAGNESIUM SULF IV NR ×7 (20:08)
[2022-11-02] MEDS: [UNRECOGNIZED DRUG - OTHER] IV NR ×7 (20:08)
[2022-11-03] VITALS (109 sets, daily range): BP systolic 91–129; BP diastolic 41–68; PULSE 59–102; RESP 23–25; TEMP 96.8–99.1; O2SAT 94–100
[2022-11-03] MEDS: ACCU-CHEK COMFORT CURVE STRIP VI SCH ×4 (00:01→17:41)
[2022-11-03] MEDS: InsuLIN REG 1unit/0.01ml Soln (100units/ml) SC SCH ×4 (00:05→17:45)
[2022-11-03] MEDS: IPRATROPIUM BROM 0.5 MG/2.5ML INH SOL NEB SCH ×4 (00:09→18:27)
[2022-11-03] MEDS: LEVALBUTEROL HCL 1.25 MG/3 ML NEB NEB SCH ×4 (00:10→18:27)
[2022-11-03] MEDS: D5W 5% IV SCH ×3 (02:15→17:46)
[2022-11-03] MEDS: ACYCLOVIR SOD IV SCH ×3 (02:15→17:46)
[2022-11-03] MEDS: fentaNYL Drip 2500mCg/250mlNS 250 ML IV SCH ×3 (02:55→21:06)
[2022-11-03] MEDS: MIDAZOLAM DRIP 50 mg/50mL 50 ML IV SCH ×7 (03:35→22:40)
[2022-11-03] MEDS: NOREPINEPHRINE 8 MG/250ML KIT 250 ML IV SCH (04:40)
[2022-11-03 04:54] LABS: Basophils # (auto) 0 10 ^3/uL (0-0.2); Eosinophils # (auto) 0 10 ^3/uL (0-0.8); Monocytes # (auto) 0.5 10 ^3/uL (0-1.3); Red Cell Distribution Width 17.2 % (11.8-14.3); White Blood Cell 9.5 10^3/uL (4.4-10.8)
[2022-11-03 04:56] LABS: Hematocrit 25.6 % (41.0-53.0); Hemoglobin 8.4 g/dL (13.5-17.5); Lymphocytes # (auto) 0.3 10 ^3/uL (0.4-5.4); Lymphocytes % (auto) 3.6 % (10.0-50.0); Mean Corpuscular Hemoglobin 33.7 pg (28.0-32.0); Mean Corpuscular Hgb Conc. 32.9 g/dL (32.0-36.0); Mean Corpuscular Volume 102.4 fL (80.0-100.0); Monocytes % (auto) 5.1 % (0.0-12.0); Neutrophils # (auto) 8.7 10 ^3/uL (1.6-8.6); Neutrophils % (auto) 91.3 % (37.0-80.0); Nucleated Red Blood Cells % 0.5 %; Red Blood Cells 2.49 10^6/uL (4.5-5.90)
[2022-11-03 05:05] LABS: Alanine Aminotransferase 336 U/L (7-40); Albumin 2.4 g/dL (3.2-4.8); Alkaline Phosphatase 268 U/L (46-116); Aspartate Aminotransferase 366 U/L (13-40); BUN/Creatinine Ratio 75.5 (10.0-20.0); Blood Urea Nitrogen 40 mg/dL (9-23); Calcium 7.5 mg/dL (8.7-10.4); Carbon Dioxide 36 mmol/L (20-30); Chloride 110 mmol/L (98-107); Glucose 161 mg/dL (74-106); Magnesium 2.1 mg/dL (1.6-2.6); Potassium 4.8 mmol/L (3.5-5.1); Sodium 144 mmol/L (136-145)
[2022-11-03 05:06] LABS: Bilirubin, Total 0.3 mg/dL (0.2-1.0); Phosphorus 2.7 mg/dL (2.4-5.1); Total Protein 4.8 g/dL (5.7-8.2)
[2022-11-03 05:18] LABS: Anion Gap < 1 (5-15)
[2022-11-03] MEDS: MEROPENEM 1GM IVPB 100 ML IV SCH ×3 (05:34→21:57)
[2022-11-03] MEDS: METOCLOPRAMIDE HCL 5MG/ml INJ 2ml VIAL IV SCH ×3 (05:34→21:57)
[2022-11-03] MEDS: SODIUM CHLOR 0.9% PF (SALINE LOCK) 10ML VIAL/SYR IV SCH ×5 (06:01→21:57)
[2022-11-03 07:22] LABS: Base Excess 8.7 mmol/L (-2.0-2.0)
[2022-11-03] MEDS: PROPOFOL 100 ML IV SCH ×2 (09:04→21:58)
[2022-11-03] MEDS: PANTOPRAZOLE 40 MG/10 ML VIAL INJ IV SCH (09:44)
[2022-11-03] MEDS: MICAFUNGIN SODIUM 100 MG in SODIUM CHL 0.9% 100 ML IV SCH (09:45)
[2022-11-03] MEDS: POTASSIUM CHLORIDE IV NR ×7 (19:52)
[2022-11-03] MEDS: MAGNESIUM SULF IV NR ×7 (19:52)
[2022-11-03] MEDS: [UNRECOGNIZED DRUG - OTHER] IV NR ×7 (19:52)
[2022-11-03] MEDS ORDERED: TPN PER PHARMACY IV NR ×8 (20:00)
[2022-11-04] VITALS (109 sets, daily range): BP systolic 70–137; BP diastolic 39–81; PULSE 57–103; RESP 12–25; TEMP 98.1–98.8; O2SAT 82–100
[2022-11-04] MEDS: LEVALBUTEROL HCL 1.25 MG/3 ML NEB NEB SCH ×4 (00:15→18:31)
[2022-11-04] MEDS: IPRATROPIUM BROM 0.5 MG/2.5ML INH SOL NEB SCH ×4 (00:15→18:31)
[2022-11-04] MEDS: ACCU-CHEK COMFORT CURVE STRIP VI SCH ×4 (00:42→17:43)
[2022-11-04] MEDS: InsuLIN REG 1unit/0.01ml Soln (100units/ml) SC SCH ×4 (00:44→17:43)
[2022-11-04] MEDS: ACYCLOVIR SOD IV SCH ×3 (01:45→17:45)
[2022-11-04] MEDS: D5W 5% IV SCH ×3 (01:45→17:45)
[2022-11-04] MEDS: MIDAZOLAM DRIP 50 mg/50mL 50 ML IV SCH ×7 (01:53→23:53)
[2022-11-04 04:31] LABS: Basophils # (auto) 0 10 ^3/uL (0-0.2); Basophils % (auto) 0.1 % (0.0-2.0); Eosinophils # (auto) 0 10 ^3/uL (0-0.8); Hemoglobin 8.6 g/dL (13.5-17.5); Lymphocytes # (auto) 0.5 10 ^3/uL (0.4-5.4); Lymphocytes % (auto) 5.3 % (10.0-50.0); Monocytes # (auto) 0.5 10 ^3/uL (0-1.3)
[2022-11-04 04:35] LABS: Hematocrit 25.8 % (41.0-53.0); Mean Corpuscular Hemoglobin 34.2 pg (28.0-32.0); Mean Corpuscular Hgb Conc. 33.2 g/dL (32.0-36.0); Mean Corpuscular Volume 103.2 fL (80.0-100.0); Neutrophils # (auto) 7.5 10 ^3/uL (1.6-8.6); Neutrophils % (auto) 88.6 % (37.0-80.0); White Blood Cell 8.5 10^3/uL (4.4-10.8)
[2022-11-04 04:43] LABS: Alanine Aminotransferase 349 U/L (7-40); Albumin 2.4 g/dL (3.2-4.8); Alkaline Phosphatase 264 U/L (46-116); Aspartate Aminotransferase 321 U/L (13-40); BUN/Creatinine Ratio 81.3 (10.0-20.0); Blood Urea Nitrogen 39 mg/dL (9-23); Calcium 7.4 mg/dL (8.7-10.4); Carbon Dioxide 37 mmol/L (20-30); Chloride 109 mmol/L (98-107); Glucose 133 mg/dL (74-106); Magnesium 2.2 mg/dL (1.6-2.6); Potassium 5.1 mmol/L (3.5-5.1); Sodium 143 mmol/L (136-145)
[2022-11-04 04:44] LABS: Bilirubin, Total 0.3 mg/dL (0.2-1.0); Phosphorus 2.7 mg/dL (2.4-5.1); Total Protein 4.7 g/dL (5.7-8.2)
[2022-11-04] MEDS: METOCLOPRAMIDE HCL 5MG/ml INJ 2ml VIAL IV SCH ×3 (05:02→21:22)
[2022-11-04] MEDS: MEROPENEM 1GM IVPB 100 ML IV SCH ×3 (05:02→21:22)
[2022-11-04] MEDS: SODIUM CHLOR 0.9% PF (SALINE LOCK) 10ML VIAL/SYR IV SCH ×3 (05:03→21:23)
[2022-11-04] MEDS: fentaNYL Drip 2500mCg/250mlNS 250 ML IV SCH ×3 (05:09→21:50)
[2022-11-04 05:11] LABS: Anion Gap < 1.0 (5-15)
[2022-11-04] MEDS: PROPOFOL 100 ML IV SCH ×2 (06:21→15:06)
[2022-11-04] MEDS: NOREPINEPHRINE 8 MG/250ML KIT 250 ML IV SCH ×2 (08:00→14:53)
[2022-11-04 08:07] LABS: Base Excess 8.7 mmol/L (-2.0-2.0)
[2022-11-04] MEDS: PANTOPRAZOLE 40 MG/10 ML VIAL INJ IV SCH (09:45)
[2022-11-04] MEDS: MICAFUNGIN SODIUM 100 MG in SODIUM CHL 0.9% 100 ML IV SCH (09:45)
[2022-11-04] MEDS ORDERED: FUROSEMIDE 20 MG/2 ML VIAL IV ONE (13:45)
[2022-11-04] MEDS: Glucerna 1.2 Cal 1Liter BOTTLE GT SCH (15:06)
[2022-11-04] MEDS ORDERED: TPN PER PHARMACY IV NR ×7 (20:00)
[2022-11-05] VITALS (106 sets, daily range): BP systolic 74–140; BP diastolic 20–74; PULSE 71–124; RESP 21–27; TEMP 98.6–99.1; O2SAT 88–100
[2022-11-05] MEDS: IPRATROPIUM BROM 0.5 MG/2.5ML INH SOL NEB SCH ×4 (00:05→18:00)
[2022-11-05] MEDS: LEVALBUTEROL HCL 1.25 MG/3 ML NEB NEB SCH ×4 (00:05→18:00)
[2022-11-05] MEDS: ACCU-CHEK COMFORT CURVE STRIP VI SCH ×2 (00:48→05:08)
[2022-11-05] MEDS: PROPOFOL 100 ML IV SCH ×3 (00:48→17:52)
[2022-11-05] MEDS: D5W 5% IV SCH ×3 (01:24→18:57)
[2022-11-05] MEDS: ACYCLOVIR SOD IV SCH ×3 (01:24→18:57)
[2022-11-05] MEDS: MIDAZOLAM DRIP 50 mg/50mL 50 ML IV SCH ×6 (02:36→21:14)
[2022-11-05 03:47] LABS: Hemoglobin 8.8 g/dL (13.5-17.5); Red Cell Distribution Width 17.5 % (11.8-14.3)
[2022-11-05 03:49] LABS: Hematocrit 26.5 % (41.0-53.0); Mean Corpuscular Hemoglobin 35.3 pg (28.0-32.0); Mean Corpuscular Hgb Conc. 33.1 g/dL (32.0-36.0); Mean Corpuscular Volume 106.5 fL (80.0-100.0); Red Blood Cells 2.49 10^6/uL (4.5-5.90); White Blood Cell 8.2 10^3/uL (4.4-10.8)
[2022-11-05 03:56] LABS: Basophils % (manual) 0 (0.0-2.0); Blast Cells 0; Metamyelocytes % 0; Myelocytes % 0; Promyelocytes % 0; Reactive Lymphocytes 0
[2022-11-05 04:38] LABS: Chloride 106 mmol/L (98-107); Potassium 4.7 mmol/L (3.5-5.1); Sodium 141 mmol/L (136-145)
[2022-11-05 04:39] LABS: Carbon Dioxide 38 mmol/L (20-30)
[2022-11-05 04:40] LABS: Calcium 7.2 mg/dL (8.7-10.4)
[2022-11-05 04:44] LABS: Glucose 138 mg/dL (74-106)
[2022-11-05 04:45] LABS: Alkaline Phosphatase 296 U/L (46-116); Anion Gap < 1 (5-15); BUN/Creatinine Ratio 73.3 (10.0-20.0); Blood Urea Nitrogen 33 mg/dL (9-23); Magnesium 1.7 mg/dL (1.6-2.6)
[2022-11-05 04:46] LABS: Alanine Aminotransferase 281 U/L (7-40); Albumin 2.4 g/dL (3.2-4.8)
[2022-11-05 04:47] LABS: Bilirubin, Total 0.5 mg/dL (0.2-1.0); Total Protein 4.8 g/dL (5.7-8.2)
[2022-11-05 04:57] LABS: Aspartate Aminotransferase 210 U/L (13-40)
[2022-11-05] MEDS: MEROPENEM 1GM IVPB 100 ML IV SCH ×3 (05:08→21:06)
[2022-11-05] MEDS: METOCLOPRAMIDE HCL 5MG/ml INJ 2ml VIAL IV SCH ×3 (05:08→21:07)
[2022-11-05] MEDS: InsuLIN REG 1unit/0.01ml Soln (100units/ml) SC SCH ×2 (05:09)
[2022-11-05 05:15] LABS: Band Neutrophils % (manual) 7; Lymphocytes % (manual) 8 (10.0-50.0)
[2022-11-05 05:16] LABS: Anisocytosis Slight; Eosinophils % (manual) 1 (0-7); Macrocytosis Moderate; Monocytes % (manual) 2 (0-12); Platelet Estimate Decreased
[2022-11-05 05:17] LABS: Polychromasia Slight
[2022-11-05] MEDS: fentaNYL Drip 2500mCg/250mlNS 250 ML IV SCH ×3 (05:32→22:21)
[2022-11-05 07:51] LABS: Base Excess 9.6 mmol/L (-2.0-2.0)
[2022-11-05] MEDS: FUROSEMIDE 20 MG/2 ML VIAL IV SCH (10:24)
[2022-11-05] MEDS: SODIUM CHLOR 0.9% PF (SALINE LOCK) 10ML VIAL/SYR IV SCH ×2 (10:24→21:07)
[2022-11-05] MEDS: PANTOPRAZOLE 40 MG/10 ML VIAL INJ IV SCH (10:24)
[2022-11-05] MEDS: MICAFUNGIN SODIUM 100 MG in SODIUM CHL 0.9% 100 ML IV SCH (10:26)
[2022-11-05] MEDS: NOREPINEPHRINE 8 MG/250ML KIT 250 ML IV SCH ×2 (11:32→23:17)
[2022-11-05] MEDS: MAGNESIUM SULFATE 1GM/100ML 100 ML IV SCH ×2 (11:55→12:44)
[2022-11-05] MEDS ORDERED: VANCOMYCIN PER PHARMACY 0 MG IV SCH (15:00)
[2022-11-05] MEDS: VANCOMYCIN 1GM/250ML 250 ML IV SCH (15:53)
[2022-11-06] VITALS (110 sets, daily range): BP systolic 82–158; BP diastolic 39–79; PULSE 82–130; RESP 23–25; TEMP 97.9–99.3; O2SAT 90–100
[2022-11-06] MEDS: IPRATROPIUM BROM 0.5 MG/2.5ML INH SOL NEB SCH ×4 (00:07→18:37)
[2022-11-06] MEDS: LEVALBUTEROL HCL 1.25 MG/3 ML NEB NEB SCH ×4 (00:08→18:37)
[2022-11-06] MEDS: VANCOMYCIN 1GM/250ML 250 ML IV SCH ×3 (01:13→22:11)
[2022-11-06] MEDS: MIDAZOLAM DRIP 50 mg/50mL 50 ML IV SCH ×3 (01:37→18:36)
[2022-11-06] MEDS: D5W 5% IV SCH ×3 (01:40→18:06)
[2022-11-06] MEDS: ACYCLOVIR SOD IV SCH ×3 (01:40→18:06)
[2022-11-06] MEDS: Glucerna 1.2 Cal 1Liter BOTTLE GT SCH (01:53)
[2022-11-06 04:24] LABS: Basophils # (auto) 0 10 ^3/uL (0-0.2); Eosinophils # (auto) 0.1 10 ^3/uL (0-0.8); Hematocrit 28.7 % (41.0-53.0); Hemoglobin 9.7 g/dL (13.5-17.5); Lymphocytes # (auto) 0.3 10 ^3/uL (0.4-5.4); Mean Corpuscular Hgb Conc. 33.7 g/dL (32.0-36.0); Monocytes # (auto) 0.2 10 ^3/uL (0-1.3); Nucleated Red Blood Cells % 0.5 %; White Blood Cell 6.1 10^3/uL (4.4-10.8)
[2022-11-06 04:26] LABS: Basophils % (auto) 0.1 % (0.0-2.0); Eosinophils % (auto) 1.9 % (0.0-7.0); Lymphocytes % (auto) 5.6 % (10.0-50.0); Mean Corpuscular Hemoglobin 34.3 pg (28.0-32.0); Mean Corpuscular Volume 101.8 fL (80.0-100.0); Monocytes % (auto) 2.9 % (0.0-12.0); Neutrophils # (auto) 5.4 10 ^3/uL (1.6-8.6); Neutrophils % (auto) 89.5 % (37.0-80.0); Red Blood Cells 2.82 10^6/uL (4.5-5.90); Red Cell Distribution Width 17.1 % (11.8-14.3)
[2022-11-06 04:34] LABS: Alanine Aminotransferase 195 U/L (7-40); Albumin 2.3 g/dL (3.2-4.8); Alkaline Phosphatase 272 U/L (46-116); Aspartate Aminotransferase 121 U/L (13-40); BUN/Creatinine Ratio 57.1 (10.0-20.0); Bilirubin, Total 0.5 mg/dL (0.2-1.0); Blood Urea Nitrogen 20 mg/dL (9-23); Calcium 7.3 mg/dL (8.7-10.4); Chloride 101 mmol/L (98-107); Glucose 171 mg/dL (74-106); Potassium 4.1 mmol/L (3.5-5.1); Sodium 141 mmol/L (136-145); Total Protein 4.5 g/dL (5.7-8.2)
[2022-11-06 04:56] LABS: Anion Gap -0.00001 (5-15); Carbon Dioxide > 40 mmol/L (20-30)
[2022-11-06] MEDS: PROPOFOL 100 ML IV SCH ×2 (05:07→14:15)
[2022-11-06] MEDS: MEROPENEM 1GM IVPB 100 ML IV SCH ×2 (05:35→14:46)
[2022-11-06] MEDS: METOCLOPRAMIDE HCL 5MG/ml INJ 2ml VIAL IV SCH ×3 (05:40→21:34)
[2022-11-06 05:59] LABS: Base Excess 7.7 mmol/L (-2.0-2.0)
[2022-11-06] MEDS: fentaNYL Drip 2500mCg/250mlNS 250 ML IV SCH ×3 (06:16→22:12)
[2022-11-06] MEDS: MICAFUNGIN SODIUM 100 MG in SODIUM CHL 0.9% 100 ML IV SCH (09:14)
[2022-11-06] MEDS: PANTOPRAZOLE 40 MG/10 ML VIAL INJ IV SCH (09:52)
[2022-11-06] MEDS: SODIUM CHLOR 0.9% PF (SALINE LOCK) 10ML VIAL/SYR IV SCH ×2 (09:53→21:34)
[2022-11-06] MEDS: FUROSEMIDE 20 MG/2 ML VIAL IV SCH (09:53)
[2022-11-06] MEDS: NOREPINEPHRINE 8 MG/250ML KIT 250 ML IV SCH ×2 (10:12→19:56)
[2022-11-06] MEDS: MAGNESIUM SULFATE 1GM/100ML 100 ML IV SCH ×2 (11:11→12:52)
[2022-11-06] MEDS ORDERED: DIGOXIN (250MCG/ML) 2 ML AMPULE IV ONE (12:45)
[2022-11-06] MEDS ORDERED: MEROPENEM 1GM IVPB 100 ML IV SCH (23:59)
[2022-11-07] VITALS (111 sets, daily range): BP systolic 80–150; BP diastolic 40–74; PULSE 72–155; RESP 12–24; TEMP 96.4–99.5; O2SAT 86–100
[2022-11-07] MEDS: IPRATROPIUM BROM 0.5 MG/2.5ML INH SOL NEB SCH ×4 (00:36→18:36)
[2022-11-07] MEDS: LEVALBUTEROL HCL 1.25 MG/3 ML NEB NEB SCH ×4 (00:37→18:36)
[2022-11-07] MEDS: ACYCLOVIR SOD IV SCH ×3 (02:43→21:11)
[2022-11-07] MEDS: D5W 5% IV SCH ×3 (02:43→21:11)
[2022-11-07] MEDS: MIDAZOLAM DRIP 50 mg/50mL 50 ML IV SCH ×3 (02:50→21:12)
[2022-11-07] MEDS: PROPOFOL 100 ML IV SCH ×3 (02:50→21:36)
[2022-11-07] MEDS: NOREPINEPHRINE 8 MG/250ML KIT 250 ML IV SCH ×2 (03:06→11:23)
[2022-11-07 04:17] LABS: Basophils # (auto) 0 10 ^3/uL (0-0.2); Eosinophils # (auto) 0.1 10 ^3/uL (0-0.8); Hemoglobin 9.5 g/dL (13.5-17.5); Mean Corpuscular Volume 102.5 fL (80.0-100.0); Monocytes # (auto) 0.2 10 ^3/uL (0-1.3); Nucleated Red Blood Cells % 0.3 %; White Blood Cell 5.3 10^3/uL (4.4-10.8)
[2022-11-07 04:19] LABS: Eosinophils % (auto) 1.9 % (0.0-7.0); Hematocrit 28.8 % (41.0-53.0); Lymphocytes # (auto) 0.6 10 ^3/uL (0.4-5.4); Lymphocytes % (auto) 10.8 % (10.0-50.0); Mean Corpuscular Hemoglobin 33.7 pg (28.0-32.0); Mean Corpuscular Hgb Conc. 32.9 g/dL (32.0-36.0); Monocytes % (auto) 3.6 % (0.0-12.0); Neutrophils # (auto) 4.4 10 ^3/uL (1.6-8.6); Neutrophils % (auto) 83.7 % (37.0-80.0); Red Blood Cells 2.81 10^6/uL (4.5-5.90); Red Cell Distribution Width 16.7 % (11.8-14.3)
[2022-11-07 04:30] LABS: Alanine Aminotransferase 140 U/L (7-40); Albumin 2.2 g/dL (3.2-4.8); Alkaline Phosphatase 250 U/L (46-116); Aspartate Aminotransferase 86 U/L (13-40); BUN/Creatinine Ratio 46.4 (10.0-20.0); Bilirubin, Total 0.5 mg/dL (0.2-1.0); Blood Urea Nitrogen 13 mg/dL (9-23); Calcium 7.2 mg/dL (8.7-10.4); Chloride 96 mmol/L (98-107); Glucose 209 mg/dL (74-106); Potassium 3.9 mmol/L (3.5-5.1); Sodium 137 mmol/L (136-145)
[2022-11-07 04:31] LABS: Total Protein 4.4 g/dL (5.7-8.2)
[2022-11-07 04:56] LABS: Anion Gap 0.99999 (5-15); Carbon Dioxide > 40 mmol/L (20-30)
[2022-11-07] MEDS: METOCLOPRAMIDE HCL 5MG/ml INJ 2ml VIAL IV SCH ×3 (05:42→21:35)
[2022-11-07] MEDS: fentaNYL Drip 2500mCg/250mlNS 250 ML IV SCH ×3 (07:08→21:45)
[2022-11-07 07:26] LABS: Base Excess 14.6 mmol/L (-2.0-2.0)
[2022-11-07] MEDS: VANCOMYCIN 1GM/250ML 250 ML IV SCH ×2 (08:13→18:12)
[2022-11-07] MEDS: MEROPENEM 1GM IVPB 100 ML IV SCH ×2 (09:15→17:08)
[2022-11-07] MEDS: FUROSEMIDE 20 MG/2 ML VIAL IV SCH (09:43)
[2022-11-07] MEDS: SODIUM CHLOR 0.9% PF (SALINE LOCK) 10ML VIAL/SYR IV SCH ×2 (09:45→21:35)
[2022-11-07] MEDS: PANTOPRAZOLE 40 MG/10 ML VIAL INJ IV SCH (09:45)
[2022-11-07] MEDS: MICAFUNGIN SODIUM 100 MG in SODIUM CHL 0.9% 100 ML IV SCH (12:30)
[2022-11-07] MEDS ORDERED: AMIODARONE HCL 200 MG TAB PO ONE (14:15)
[2022-11-07] MEDS ORDERED: ALBUMIN 25% 50 ML IV ONE (14:45)
[2022-11-07] MEDS: NOREPINEPHRINE BITARTRATE 16 MG in SODIUM CHL 0.9% 234 ML IV SCH (17:10)
[2022-11-07] MEDS: MAGNESIUM SULFATE 1GM/100ML 100 ML IV SCH ×2 (17:20→18:13)
[2022-11-07] MEDS: AMIODARONE HCL 200 MG TAB PO SCH (21:35)
[2022-11-07] MEDS ORDERED: DIGOXIN (250MCG/ML) 2 ML AMPULE IV ONE (23:00)
[2022-11-07] MEDS ORDERED: DIGOXIN (250MCG/ML) 2 ML AMPULE ONE (23:10)
[2022-11-08] VITALS (107 sets, daily range): BP systolic 17–169; BP diastolic 46–88; PULSE 71–157; RESP 18–32; TEMP 95–99.3; O2SAT 84–100
[2022-11-08] MEDS ORDERED: NOREPINEPHRINE 8 MG/250ML KIT 250 ML IV ONE (00:04)
[2022-11-08] MEDS ORDERED: NOREPINEPHRINE BITARTRATE 2 ML IV ONE (00:04)
[2022-11-08] MEDS: IPRATROPIUM BROM 0.5 MG/2.5ML INH SOL NEB SCH ×4 (00:39→18:40)
[2022-11-08] MEDS: LEVALBUTEROL HCL 1.25 MG/3 ML NEB NEB SCH ×4 (00:39→18:40)
[2022-11-08] MEDS: ROCURONIUM 10MG/ML 10ML VIAL IV PRN (00:52)
[2022-11-08] MEDS: MEROPENEM 1GM IVPB 100 ML IV SCH ×3 (00:57→17:05)
[2022-11-08] MEDS ORDERED: AMIODARONE 450mg/250ml AE 250 ML IV ONE (01:09)
[2022-11-08] MEDS ORDERED: AMIODARONE 450mg/250ml AE 250 ML IV SCH (01:15)
[2022-11-08] MEDS: MIDAZOLAM DRIP 50 mg/50mL 50 ML IV SCH ×6 (03:20→23:19)
[2022-11-08 03:44] LABS: Base Excess 15.9 mmol/L (-2.0-2.0)
[2022-11-08] MEDS: ACYCLOVIR SOD IV SCH ×3 (04:12→19:51)
[2022-11-08] MEDS: D5W 5% IV SCH ×3 (04:12→19:51)
[2022-11-08 04:32] LABS: Basophils # (auto) 0 10 ^3/uL (0-0.2); Basophils % (auto) 0.1 % (0.0-2.0); Eosinophils # (auto) 0.1 10 ^3/uL (0-0.8); Hemoglobin 10.2 g/dL (13.5-17.5); Lymphocytes # (auto) 0.7 10 ^3/uL (0.4-5.4); Red Cell Distribution Width 16.6 % (11.8-14.3)
[2022-11-08 04:36] LABS: Eosinophils % (auto) 1.4 % (0.0-7.0); Hematocrit 30.8 % (41.0-53.0); Lymphocytes % (auto) 10.4 % (10.0-50.0); Mean Corpuscular Hemoglobin 33.8 pg (28.0-32.0); Mean Corpuscular Hgb Conc. 33.1 g/dL (32.0-36.0); Mean Corpuscular Volume 102.2 fL (80.0-100.0); Monocytes # (auto) 0.4 10 ^3/uL (0-1.3); Monocytes % (auto) 5.3 % (0.0-12.0); Neutrophils # (auto) 5.9 10 ^3/uL (1.6-8.6); Neutrophils % (auto) 82.8 % (37.0-80.0); Nucleated Red Blood Cells % 0.5 %; Red Blood Cells 3.01 10^6/uL (4.5-5.90); White Blood Cell 7.1 10^3/uL (4.4-10.8)
[2022-11-08 04:43] LABS: Chloride 95 mmol/L (98-107); Potassium 4.1 mmol/L (3.5-5.1); Sodium 135 mmol/L (136-145)
[2022-11-08 04:44] LABS: Calcium 7.5 mg/dL (8.7-10.4)
[2022-11-08 04:49] LABS: BUN/Creatinine Ratio 39.1 (10.0-20.0); Blood Urea Nitrogen 9 mg/dL (9-23); Glucose 144 mg/dL (74-106); Magnesium 1.7 mg/dL (1.6-2.6)
[2022-11-08] MEDS: NOREPINEPHRINE BITARTRATE 16 MG in SODIUM CHL 0.9% 234 ML IV SCH ×2 (05:28→17:03)
[2022-11-08] MEDS: METOCLOPRAMIDE HCL 5MG/ml INJ 2ml VIAL IV SCH ×3 (05:32→21:19)
[2022-11-08] MEDS: fentaNYL Drip 2500mCg/250mlNS 250 ML IV SCH ×3 (05:46→21:40)
[2022-11-08 06:02] LABS: Anion Gap -0.00001 (5-15); Carbon Dioxide > 40 mmol/L (20-30)
[2022-11-08] MEDS: VANCOMYCIN 1GM/250ML 250 ML IV SCH ×3 (06:25→23:42)
[2022-11-08] MEDS: AMIODARONE 450mg/250ml AE 250 ML IV SCH ×3 (07:30→21:52)
[2022-11-08 07:48] LABS: Base Excess 14.8 mmol/L (-2.0-2.0)
[2022-11-08] MEDS: FUROSEMIDE 20 MG/2 ML VIAL IV SCH (09:48)
[2022-11-08] MEDS: AMIODARONE HCL 200 MG TAB PO SCH ×2 (09:55→21:20)
[2022-11-08] MEDS: SODIUM CHLOR 0.9% PF (SALINE LOCK) 10ML VIAL/SYR IV SCH ×2 (09:55→21:20)
[2022-11-08] MEDS: PANTOPRAZOLE 40 MG/10 ML VIAL INJ IV SCH (09:55)
[2022-11-08] MEDS: MICAFUNGIN SODIUM 100 MG in SODIUM CHL 0.9% 100 ML IV SCH (11:36)
[2022-11-08] MEDS: PROPOFOL 100 ML IV SCH (15:20)
[2022-11-08] MEDS: VASOPRESSIN 20 UNITS in SODIUM CHL 0.9% 99 ML IV SCH (15:30)
[2022-11-09] VITALS (107 sets, daily range): BP systolic 83–133; BP diastolic 46–68; PULSE 72–117; RESP 27–31; TEMP 97.1–99.1; O2SAT 95–100
[2022-11-09] MEDS: IPRATROPIUM BROM 0.5 MG/2.5ML INH SOL NEB SCH ×4 (00:21→18:45)
[2022-11-09] MEDS: LEVALBUTEROL HCL 1.25 MG/3 ML NEB NEB SCH ×4 (00:21→18:45)
[2022-11-09] MEDS: MEROPENEM 1GM IVPB 100 ML IV SCH ×3 (01:04→16:56)
[2022-11-09] MEDS: PROPOFOL 100 ML IV SCH ×2 (01:31→09:29)
[2022-11-09] MEDS: VASOPRESSIN 20 UNITS in SODIUM CHL 0.9% 99 ML IV SCH ×2 (02:37→13:44)
[2022-11-09] MEDS: MIDAZOLAM DRIP 50 mg/50mL 50 ML IV SCH ×6 (03:27→20:58)
[2022-11-09] MEDS: NOREPINEPHRINE BITARTRATE 16 MG in SODIUM CHL 0.9% 234 ML IV SCH ×2 (03:39→14:11)
[2022-11-09 04:14] LABS: Basophils # (auto) 0 10 ^3/uL (0-0.2); Basophils % (auto) 0.1 % (0.0-2.0); Eosinophils # (auto) 0.1 10 ^3/uL (0-0.8); Hematocrit 29.5 % (41.0-53.0); Hemoglobin 9.8 g/dL (13.5-17.5); Mean Corpuscular Hemoglobin 34.3 pg (28.0-32.0); Monocytes # (auto) 0.5 10 ^3/uL (0-1.3); Nucleated Red Blood Cells % 0.1 %; Red Blood Cells 2.85 10^6/uL (4.5-5.90)
[2022-11-09 04:16] LABS: Eosinophils % (auto) 0.8 % (0.0-7.0); Lymphocytes # (auto) 0.8 10 ^3/uL (0.4-5.4); Lymphocytes % (auto) 13.1 % (10.0-50.0); Mean Corpuscular Hgb Conc. 33.1 g/dL (32.0-36.0); Mean Corpuscular Volume 103.4 fL (80.0-100.0); Monocytes % (auto) 7.2 % (0.0-12.0); Neutrophils # (auto) 5.1 10 ^3/uL (1.6-8.6); Neutrophils % (auto) 78.8 % (37.0-80.0); Red Cell Distribution Width 16.7 % (11.8-14.3); White Blood Cell 6.5 10^3/uL (4.4-10.8)
[2022-11-09 04:27] LABS: Chloride 95 mmol/L (98-107); Potassium 4.1 mmol/L (3.5-5.1); Sodium 136 mmol/L (136-145)
[2022-11-09 04:28] LABS: Calcium 7.7 mg/dL (8.7-10.4)
[2022-11-09 04:33] LABS: BUN/Creatinine Ratio 23.5 (10.0-20.0); Blood Urea Nitrogen 8 mg/dL (9-23); Glucose 147 mg/dL (74-106)
[2022-11-09 04:37] LABS: Anion Gap 0.99999 (5-15); Carbon Dioxide > 40 mmol/L (20-30)
[2022-11-09] MEDS: ACYCLOVIR SOD IV SCH ×3 (04:45→20:13)
[2022-11-09] MEDS: D5W 5% IV SCH ×3 (04:45→20:13)
[2022-11-09] MEDS: METOCLOPRAMIDE HCL 5MG/ml INJ 2ml VIAL IV SCH ×3 (05:47→22:31)
[2022-11-09] MEDS: fentaNYL Drip 2500mCg/250mlNS 250 ML IV SCH ×3 (05:53→22:36)
[2022-11-09 07:21] LABS: Base Excess 16.9 mmol/L (-2.0-2.0)
[2022-11-09] MEDS: AMIODARONE HCL 200 MG TAB PO SCH (10:00)
[2022-11-09] MEDS: SODIUM CHLOR 0.9% PF (SALINE LOCK) 10ML VIAL/SYR IV SCH ×2 (10:14→22:32)
[2022-11-09] MEDS: VANCOMYCIN 1GM/250ML 250 ML IV SCH ×2 (10:16→20:14)
[2022-11-09] MEDS: PANTOPRAZOLE 40 MG/10 ML VIAL INJ IV SCH (10:19)
[2022-11-09] MEDS: FUROSEMIDE 20 MG/2 ML VIAL IV SCH (10:19)
[2022-11-09] MEDS: MICAFUNGIN SODIUM 100 MG in SODIUM CHL 0.9% 100 ML IV SCH (12:33)
[2022-11-09] MEDS: AMIODARONE 450mg/250ml AE 250 ML IV SCH (12:37)
[2022-11-09 14:00] LABS: Base Excess 14.6 mmol/L (-2.0-2.0)
[2022-11-09] MEDS ORDERED: Vital AF 1.2 Cal 1 liter bottle GT SCH (14:15)
[2022-11-09] MEDS ORDERED: FUROSEMIDE 40 MG/4 ML VIAL IV SCH (18:00)
[2022-11-09] MEDS: Glucerna 1.2 Cal 1Liter BOTTLE GT SCH (21:16)
[2022-11-10] VITALS (107 sets, daily range): BP systolic 81–130; BP diastolic 44–75; PULSE 65–100; RESP 18–31; TEMP 97–99; O2SAT 90–99
[2022-11-10] MEDS: MIDAZOLAM DRIP 50 mg/50mL 50 ML IV SCH ×5 (00:06→23:21)
[2022-11-10] MEDS: LEVALBUTEROL HCL 1.25 MG/3 ML NEB NEB SCH ×4 (00:16→18:39)
[2022-11-10] MEDS: IPRATROPIUM BROM 0.5 MG/2.5ML INH SOL NEB SCH ×4 (00:16→18:38)
[2022-11-10] MEDS: MEROPENEM 1GM IVPB 100 ML IV SCH ×3 (00:17→17:40)
[2022-11-10] MEDS: VASOPRESSIN 20 UNITS in SODIUM CHL 0.9% 99 ML IV SCH ×3 (00:51→23:05)
[2022-11-10] MEDS: NOREPINEPHRINE BITARTRATE 16 MG in SODIUM CHL 0.9% 234 ML IV SCH ×2 (02:30→14:40)
[2022-11-10] MEDS: AMIODARONE 450mg/250ml AE 250 ML IV SCH ×2 (03:03→17:54)
[2022-11-10] MEDS: ACYCLOVIR SOD IV SCH ×3 (03:28→20:27)
[2022-11-10] MEDS: D5W 5% IV SCH ×3 (03:28→20:27)
[2022-11-10 04:31] LABS: Basophils # (auto) 0 10 ^3/uL (0-0.2); Basophils % (auto) 0.3 % (0.0-2.0); Lymphocytes # (auto) 0.9 10 ^3/uL (0.4-5.4); Monocytes # (auto) 0.5 10 ^3/uL (0-1.3); Neutrophils # (auto) 4.3 10 ^3/uL (1.6-8.6); White Blood Cell 5.7 10^3/uL (4.4-10.8)
[2022-11-10 04:34] LABS: Eosinophils # (auto) 0 10 ^3/uL (0-0.8); Eosinophils % (auto) 0.8 % (0.0-7.0); Hematocrit 28.1 % (41.0-53.0); Hemoglobin 9.2 g/dL (13.5-17.5); Mean Corpuscular Hemoglobin 33.7 pg (28.0-32.0); Mean Corpuscular Hgb Conc. 32.8 g/dL (32.0-36.0); Mean Corpuscular Volume 102.7 fL (80.0-100.0); Neutrophils % (auto) 74.9 % (37.0-80.0); Red Blood Cells 2.74 10^6/uL (4.5-5.90); Red Cell Distribution Width 17.1 % (11.8-14.3)
[2022-11-10 04:52] LABS: Alanine Aminotransferase 81 U/L (7-40); Albumin 2.4 g/dL (3.2-4.8); Alkaline Phosphatase 287 U/L (46-116); Aspartate Aminotransferase 61 U/L (13-40); BUN/Creatinine Ratio 22.9 (10.0-20.0); Bilirubin, Total 0.5 mg/dL (0.2-1.0); Blood Urea Nitrogen 8 mg/dL (9-23); Calcium 7.5 mg/dL (8.7-10.4); Chloride 96 mmol/L (98-107); Glucose 144 mg/dL (74-106); Potassium 3.6 mmol/L (3.5-5.1); Sodium 140 mmol/L (136-145); Total Protein 4.7 g/dL (5.7-8.2)
[2022-11-10 05:09] LABS: Anion Gap 3.99999 (5-15); Carbon Dioxide > 40 mmol/L (20-30)
[2022-11-10] MEDS: METOCLOPRAMIDE HCL 5MG/ml INJ 2ml VIAL IV SCH ×3 (05:59→22:10)
[2022-11-10] MEDS: VANCOMYCIN 1GM/250ML 250 ML IV SCH ×2 (06:00→16:30)
[2022-11-10] MEDS: PROPOFOL 100 ML IV SCH ×2 (06:19→15:29)
[2022-11-10] MEDS: fentaNYL Drip 2500mCg/250mlNS 250 ML IV SCH ×3 (06:22→23:33)
[2022-11-10 07:16] LABS: Base Excess 21.5 mmol/L (-2.0-2.0)
[2022-11-10] MEDS: FUROSEMIDE 40 MG/4 ML VIAL IV SCH (09:45)
[2022-11-10] MEDS: SODIUM CHLOR 0.9% PF (SALINE LOCK) 10ML VIAL/SYR IV SCH ×2 (09:46→22:10)
[2022-11-10] MEDS: PANTOPRAZOLE 40 MG/10 ML VIAL INJ IV SCH (09:46)
[2022-11-10] MEDS: MICAFUNGIN SODIUM 100 MG in SODIUM CHL 0.9% 100 ML IV SCH (12:21)
[2022-11-10] MEDS: MAGNESIUM SULFATE 1GM/100ML 100 ML IV SCH ×2 (15:46→16:32)
[2022-11-10] MEDS: LACTULOSE 20Gm/30ML SOLN PO SCH ×2 (17:38→23:33)
[2022-11-10] MEDS ORDERED: LACTULOSE 20Gm/30ML SOLN PO SCH (22:00)
[2022-11-11] VITALS (121 sets, daily range): BP systolic 58–139; BP diastolic 37–66; PULSE 66–106; RESP 22–31; TEMP 95.9–99.9; O2SAT 88–98
[2022-11-11] MEDS: IPRATROPIUM BROM 0.5 MG/2.5ML INH SOL NEB SCH ×4 (01:24→18:41)
[2022-11-11] MEDS: LEVALBUTEROL HCL 1.25 MG/3 ML NEB NEB SCH ×4 (01:24→18:41)
[2022-11-11] MEDS: VANCOMYCIN 1GM/250ML 250 ML IV SCH ×3 (01:31→22:09)
[2022-11-11] MEDS: MEROPENEM 1GM IVPB 100 ML IV SCH ×3 (01:32→17:25)
[2022-11-11] MEDS: PROPOFOL 100 ML IV SCH ×2 (01:36→22:29)
[2022-11-11] MEDS: MIDAZOLAM DRIP 50 mg/50mL 50 ML IV SCH ×7 (02:27→23:28)
[2022-11-11] MEDS: NOREPINEPHRINE BITARTRATE 16 MG in SODIUM CHL 0.9% 234 ML IV SCH ×2 (03:28→20:10)
[2022-11-11 04:00] LABS: Basophils # (auto) 0 10 ^3/uL (0-0.2); Hemoglobin 8.7 g/dL (13.5-17.5); Lymphocytes # (auto) 0.8 10 ^3/uL (0.4-5.4)
[2022-11-11 04:02] LABS: Basophils % (auto) 0.4 % (0.0-2.0); Eosinophils # (auto) 0 10 ^3/uL (0-0.8); Eosinophils % (auto) 0.8 % (0.0-7.0); Hematocrit 26.3 % (41.0-53.0); Lymphocytes % (auto) 16.1 % (10.0-50.0); Mean Corpuscular Hemoglobin 33.8 pg (28.0-32.0); Mean Corpuscular Volume 102.6 fL (80.0-100.0); Monocytes # (auto) 0.5 10 ^3/uL (0-1.3); Monocytes % (auto) 9.3 % (0.0-12.0); Neutrophils # (auto) 3.6 10 ^3/uL (1.6-8.6); Neutrophils % (auto) 73.4 % (37.0-80.0); Nucleated Red Blood Cells % 0.2 %; Red Blood Cells 2.56 10^6/uL (4.5-5.90); Red Cell Distribution Width 17.5 % (11.8-14.3); White Blood Cell 4.9 10^3/uL (4.4-10.8)
[2022-11-11 04:18] LABS: Alanine Aminotransferase 61 U/L (7-40); Albumin 2.3 g/dL (3.2-4.8); Alkaline Phosphatase 250 U/L (46-116); Aspartate Aminotransferase 43 U/L (13-40); BUN/Creatinine Ratio 17.1 (10.0-20.0); Bilirubin, Total 0.6 mg/dL (0.2-1.0); Blood Urea Nitrogen 6 mg/dL (9-23); Calcium 7.4 mg/dL (8.7-10.4); Chloride 94 mmol/L (98-107); Glucose 167 mg/dL (74-106); Magnesium 1.7 mg/dL (1.6-2.6); Sodium 140 mmol/L (136-145); Total Protein 4.5 g/dL (5.7-8.2)
[2022-11-11 04:22] LABS: Anion Gap 5.99999 (5-15)
[2022-11-11 04:23] LABS: Carbon Dioxide > 40 mmol/L (20-30)
[2022-11-11] MEDS: ACYCLOVIR SOD IV SCH ×3 (04:49→20:12)
[2022-11-11] MEDS: D5W 5% IV SCH ×3 (04:49→20:12)
[2022-11-11] MEDS: METOCLOPRAMIDE HCL 5MG/ml INJ 2ml VIAL IV SCH ×3 (05:11→21:41)
[2022-11-11] MEDS: LACTULOSE 20Gm/30ML SOLN PO SCH ×3 (05:11→17:34)
[2022-11-11 07:08] LABS: Base Excess 15.5 mmol/L (-2.0-2.0)
[2022-11-11] MEDS: fentaNYL Drip 2500mCg/250mlNS 250 ML IV SCH ×3 (07:11→15:37)
[2022-11-11] MEDS: AMIODARONE 450mg/250ml AE 250 ML IV SCH ×2 (07:31→21:53)
[2022-11-11] MEDS: PANTOPRAZOLE 40 MG/10 ML VIAL INJ IV SCH (09:16)
[2022-11-11] MEDS: SODIUM CHLOR 0.9% PF (SALINE LOCK) 10ML VIAL/SYR IV SCH ×2 (09:17→21:58)
[2022-11-11] MEDS: FUROSEMIDE 40 MG/4 ML VIAL IV SCH (09:17)
[2022-11-11] MEDS: VASOPRESSIN 20 UNITS in SODIUM CHL 0.9% 99 ML IV SCH ×2 (10:12→21:19)
[2022-11-11] MEDS: MICAFUNGIN SODIUM 100 MG in SODIUM CHL 0.9% 100 ML IV SCH (13:00)
[2022-11-11] MEDS: POTASSIUM CHL 20MEQ/100ML 100 ML IV SCH ×2 (15:38→18:04)
[2022-11-11] MEDS: MAGNESIUM SULFATE 1GM/100ML 100 ML IV SCH ×2 (17:11→18:05)
[2022-11-12] VITALS (126 sets, daily range): BP systolic 82–117; BP diastolic 36–63; PULSE 68–107; RESP 18–31; TEMP 96.1–100.9; O2SAT 90–99
[2022-11-12] MEDS: LEVALBUTEROL HCL 1.25 MG/3 ML NEB NEB SCH ×4 (00:39→18:37)
[2022-11-12] MEDS: IPRATROPIUM BROM 0.5 MG/2.5ML INH SOL NEB SCH ×4 (00:39→18:37)
[2022-11-12] MEDS: LACTULOSE 20Gm/30ML SOLN PO SCH ×5 (00:58→23:43)
[2022-11-12] MEDS: MEROPENEM 1GM IVPB 100 ML IV SCH ×4 (00:58→23:43)
[2022-11-12] MEDS: fentaNYL Drip 2500mCg/250mlNS 250 ML IV SCH ×2 (01:01→09:29)
[2022-11-12] MEDS: ACYCLOVIR SOD IV SCH ×3 (04:08→20:25)
[2022-11-12] MEDS: D5W 5% IV SCH ×3 (04:08→20:25)
[2022-11-12] MEDS: MIDAZOLAM DRIP 50 mg/50mL 50 ML IV SCH ×5 (04:08→23:42)
[2022-11-12 04:50] LABS: Calcium 7.4 mg/dL (8.7-10.4); Chloride 93 mmol/L (98-107); Potassium 3.2 mmol/L (3.5-5.1); Sodium 138 mmol/L (136-145)
[2022-11-12 04:55] LABS: Glucose 147 mg/dL (74-106)
[2022-11-12 04:56] LABS: BUN/Creatinine Ratio 19.4 (10.0-20.0); Blood Urea Nitrogen 7 mg/dL (9-23)
[2022-11-12 05:13] LABS: Anion Gap 4.99999 (5-15); Carbon Dioxide > 40 mmol/L (20-30)
[2022-11-12] MEDS: METOCLOPRAMIDE HCL 5MG/ml INJ 2ml VIAL IV SCH ×3 (06:04→22:11)
[2022-11-12 06:57] LABS: Base Excess 21.5 mmol/L (-2.0-2.0)
[2022-11-12] MEDS: PROPOFOL 100 ML IV SCH ×2 (07:27→17:00)
[2022-11-12] MEDS: PANTOPRAZOLE 40 MG/10 ML VIAL INJ IV SCH (08:06)
[2022-11-12] MEDS: VANCOMYCIN 1GM/250ML 250 ML IV SCH ×2 (08:06→16:50)
[2022-11-12] MEDS: FUROSEMIDE 40 MG/4 ML VIAL IV SCH (08:06)
[2022-11-12] MEDS: SODIUM CHLOR 0.9% PF (SALINE LOCK) 10ML VIAL/SYR IV SCH ×2 (08:13→22:12)
[2022-11-12] MEDS: VASOPRESSIN 20 UNITS in SODIUM CHL 0.9% 99 ML IV SCH ×2 (08:26→19:33)
[2022-11-12] MEDS: NOREPINEPHRINE BITARTRATE 16 MG in SODIUM CHL 0.9% 234 ML IV SCH (11:12)
[2022-11-12] MEDS: AMIODARONE 450mg/250ml AE 250 ML IV SCH (12:56)
[2022-11-12] MEDS: MICAFUNGIN SODIUM 100 MG in SODIUM CHL 0.9% 100 ML IV SCH (12:58)
[2022-11-12] MEDS ORDERED: POTASSIUM EFFERVESENT TAB 25 MEQ GT ONE (15:30)
[2022-11-13] VITALS (65 sets, daily range): BP systolic 43–113; BP diastolic 27–82; PULSE 27–113; RESP 7–32; TEMP 95.4–98.2; O2SAT 89–100
[2022-11-13] MEDS: NOREPINEPHRINE BITARTRATE 16 MG in SODIUM CHL 0.9% 234 ML IV SCH ×2 (00:35→11:28)
[2022-11-13] MEDS: IPRATROPIUM BROM 0.5 MG/2.5ML INH SOL NEB SCH ×2 (00:45→06:43)
[2022-11-13] MEDS: LEVALBUTEROL HCL 1.25 MG/3 ML NEB NEB SCH ×2 (00:45→06:44)
[2022-11-13] MEDS: fentaNYL Drip 2500mCg/250mlNS 250 ML IV SCH ×2 (02:51→11:36)
[2022-11-13] MEDS: MIDAZOLAM DRIP 50 mg/50mL 50 ML IV SCH ×3 (02:52→09:33)
[2022-11-13] MEDS: PROPOFOL 100 ML IV SCH ×2 (02:53→11:46)
[2022-11-13] MEDS: AMIODARONE 450mg/250ml AE 250 ML IV SCH (02:58)
[2022-11-13] MEDS: VANCOMYCIN 1GM/250ML 250 ML IV SCH (04:09)
[2022-11-13] MEDS: D5W 5% IV SCH (04:10)
[2022-11-13] MEDS: ACYCLOVIR SOD IV SCH (04:10)
[2022-11-13 04:42] LABS: Basophils # (auto) 0 10 ^3/uL (0-0.2); Eosinophils # (auto) 0 10 ^3/uL (0-0.8); Eosinophils % (auto) 0.7 % (0.0-7.0); Hemoglobin 8.8 g/dL (13.5-17.5); Lymphocytes # (auto) 1.1 10 ^3/uL (0.4-5.4); Neutrophils # (auto) 4.4 10 ^3/uL (1.6-8.6); Neutrophils % (auto) 70.9 % (37.0-80.0); Nucleated Red Blood Cells % 0.1 %
[2022-11-13 04:44] LABS: Basophils % (auto) 0.6 % (0.0-2.0); Hematocrit 26.7 % (41.0-53.0); Lymphocytes % (auto) 17.8 % (10.0-50.0); Mean Corpuscular Hemoglobin 34.1 pg (28.0-32.0); Mean Corpuscular Hgb Conc. 32.9 g/dL (32.0-36.0); Mean Corpuscular Volume 103.5 fL (80.0-100.0); Monocytes # (auto) 0.6 10 ^3/uL (0-1.3); Red Blood Cells 2.58 10^6/uL (4.5-5.90); Red Cell Distribution Width 18.8 % (11.8-14.3); White Blood Cell 6.2 10^3/uL (4.4-10.8)
[2022-11-13 04:51] LABS: Chloride 90 mmol/L (98-107); Sodium 137 mmol/L (136-145)
[2022-11-13 04:52] LABS: Calcium 7.6 mg/dL (8.7-10.4)
[2022-11-13 04:57] LABS: BUN/Creatinine Ratio 17.9 (10.0-20.0); Blood Urea Nitrogen 7 mg/dL (9-23); Glucose 155 mg/dL (74-106)
[2022-11-13 05:11] LABS: Anion Gap 6.99999 (5-15); Potassium 2.8 mmol/L (3.5-5.1)
[2022-11-13 05:12] LABS: Carbon Dioxide > 40 mmol/L (20-30)
[2022-11-13] MEDS: METOCLOPRAMIDE HCL 5MG/ml INJ 2ml VIAL IV SCH (05:16)
[2022-11-13] MEDS: LACTULOSE 20Gm/30ML SOLN PO SCH (05:16)
[2022-11-13] MEDS: VASOPRESSIN 20 UNITS in SODIUM CHL 0.9% 99 ML IV SCH (06:40)
[2022-11-13 07:53] LABS: Base Excess 22.5 mmol/L (-2.0-2.0)
[2022-11-13] MEDS: POTASSIUM CHL 20MEQ/100ML 100 ML IV SCH ×4 (08:01→11:44)
[2022-11-13] MEDS: MEROPENEM 1GM IVPB 100 ML IV SCH (09:28)
[2022-11-13] MEDS: SODIUM CHLOR 0.9% PF (SALINE LOCK) 10ML VIAL/SYR IV SCH (09:34)
[2022-11-13] MEDS: FUROSEMIDE 40 MG/4 ML VIAL IV SCH (09:34)
[2022-11-13] MEDS: PANTOPRAZOLE 40 MG/10 ML VIAL INJ IV SCH (09:37)
[2022-11-13] MEDS ORDERED: LORazepam 2MG/ML-1ML VIAL IV PRN ×2 (12:45→13:45)
[2022-11-13] MEDS ORDERED: MORPHINE SULFATE INJ 2 MG/ml SYRG IV PRN (13:45)
== END 2022-11-13 19:10 | DRG 870 ==
LOC: ER 21:38 → EDBD 21:38 → TELE 10-17 06:51 → DOU IN ICU 10-17 14:54 → ICU WEST 10-22 16:18
PROVIDERS: ADMIT Nurse Practitioner Family; ATTEND Internal Medicine
PROC: 5A09457 Assistance with Respiratory Ventilation, 24-96 Consecutive Hours, Continuous Positive Airway Pressure (ICD-10-PCS; 2022-10-16)
PROC: 5A0935A Assistance with Respiratory Ventilation, Less than 24 Consecutive Hours, High Flow/Velocity Cannula (ICD-10-PCS; 2022-10-19)
PROC: 5A0935A Assistance with Respiratory Ventilation, Less than 24 Consecutive Hours, High Flow/Velocity Cannula (ICD-10-PCS; 2022-10-20)
PROC: 5A09357 Assistance with Respiratory Ventilation, Less than 24 Consecutive Hours, Continuous Positive Airway Pressure (ICD-10-PCS; 2022-10-20)
PROC: 5A0935A Assistance with Respiratory Ventilation, Less than 24 Consecutive Hours, High Flow/Velocity Cannula (ICD-10-PCS; 2022-10-21)
PROC: 5A09357 Assistance with Respiratory Ventilation, Less than 24 Consecutive Hours, Continuous Positive Airway Pressure (ICD-10-PCS; 2022-10-21)
PROC: 5A1955Z Respiratory Ventilation, Greater than 96 Consecutive Hours (ICD-10-PCS; principal; 2022-10-22)
PROC: 0BH17EZ Insertion of Endotracheal Airway into Trachea, Via Natural or Artificial Opening (ICD-10-PCS; 2022-10-22)
PROC: 5A0935A Assistance with Respiratory Ventilation, Less than 24 Consecutive Hours, High Flow/Velocity Cannula (ICD-10-PCS; 2022-10-22)
PROC: 0B9D8ZX Drainage of Right Middle Lung Lobe, Via Natural or Artificial Opening Endoscopic, Diagnostic (ICD-10-PCS; 2022-10-25)
PROC: 0BDM8ZX Extraction of Bilateral Lungs, Via Natural or Artificial Opening Endoscopic, Diagnostic (ICD-10-PCS; 2022-10-25)
PROC: 02HV33Z Insertion of Infusion Device into Superior Vena Cava, Percutaneous Approach (ICD-10-PCS; 2022-10-26)
PROC: B548ZZA Ultrasonography of Superior Vena Cava, Guidance (ICD-10-PCS; 2022-10-26)
DX: A41.9 Sepsis, unspecified organism (principal); I21.A1 Myocardial infarction type 2; J96.01 Acute respiratory failure with hypoxia; R65.21 Severe sepsis with septic shock; I50.41 Acute combined systolic (congestive) and diastolic (congestive) heart failure; J15.9 Unspecified bacterial pneumonia; C15.9 Malignant neoplasm of esophagus, unspecified; N39.0 Urinary tract infection, site not specified; B15.9 Hepatitis A without hepatic coma; E44.0 Moderate protein-calorie malnutrition; I47.20 Ventricular tachycardia, unspecified; J98.11 Atelectasis; B49 Unspecified mycosis; Z66 Do not resuscitate; I11.0 Hypertensive heart disease with heart failure; J44.9 Chronic obstructive pulmonary disease, unspecified; I46.9 Cardiac arrest, cause unspecified; I48.91 Unspecified atrial fibrillation; J98.2 Interstitial emphysema; D69.6 Thrombocytopenia, unspecified; R73.9 Hyperglycemia, unspecified; Z20.822 Contact with and (suspected) exposure to COVID-19; E87.6 Hypokalemia; E86.0 Dehydration; D53.9 Nutritional anemia, unspecified; Z68.31 Body mass index [BMI] 31.0-31.9, adult; Z85.01 Personal history of malignant neoplasm of esophagus; Z92.21 Personal history of antineoplastic chemotherapy; Z92.3 Personal history of irradiation
CPT/HCPCS: 36415; 36569; 36600; 71045; 71250; 74018; 76604; 76705; 80048; 80053; 80061; 80202; 81001; 82140; 82805; 82962; 83036; 83605; 83735; 83880; 84100; 84443; 84478; 84484; 85007; 85025; 85027; 85379; 85610; 85730; 86703; 86704; 86706; 86708; 86803; 87040; 87070; 87077; 87081; 87086; 87088; 87186; 87205; 87340; 87426; 87804; 93005; 93306; 93970; 93971; 94002; 94003; 94640; 94660; 96361; 96365; 96368; 96372; 96375; 96376; 99291; A4618; C9113; G0378; J0171; J0696; J1100; J1450; J1815; J2185; J2248; J2250; J2405; J2543; J2704; J3480; J7060; J7131; P9047